=== PATIENT | female | born 1965 | race Caucasian/White ===

== ENCOUNTER 2023-07-22 12:51 | Emergency (ER) | payer BC, SELFPAY ==
[2023-07-22 12:53] VITALS: BP 135/73; PULSE 64; RESP 16; TEMP 36.2; O2SAT 97; BMI 33.1
--- NOTE | 2023-07-22 13:23 | CRLHL7_ITS ---
For Patients: As a result of the Century Cures Act, medical imaging exams and procedure reports are released immediately into your electronic medical record. You may view this report before your referring provider. If you have questions, please contact your health care provider. INDICATION: 57 year-old female. Right lower quadrant abdominal pain for 1 week. Previous dilatation and curettage. Prior section. History of miscarriage. TECHNIQUE: Contrast-enhanced CT of the abdomen and pelvis. 98 cc nonionic Isovue-370 administered. COMPARISON: None. FINDINGS: Clear included lung bases. The liver is negative for masses or biliary ductal dilatation. Minimal benign calcification along the capsular surface of the right hepatic lobe just underneath the hemidiaphragm of no clinical significance. The spleen, pancreas, adrenal glands, and kidneys are within normal limits. Tiny cortical cyst right kidney. No solid mass or stone. No perinephric fluid collection/fat stranding. Small Phrygian cap of the gallbladder. The gallbladder is otherwise negative. Normal caliber abdominal aorta and iliac arteries. Normal inferior vena cava. No bowel obstruction or ileus. No ascites or lymphadenopathy. The appendix is not seen. There are no secondary signs of acute appendicitis. The uterus, urinary bladder, and both adnexa are unremarkable. Degenerative facet arthropathy of the mid to lower lumbar spine. No acute fractures. IMPRESSION: 1. No acute abdominopelvic process identified. The appendix is not seen. It may be surgically absent. 2. No bowel obstruction or ileus. No ascites or lymphadenopathy. Please note that all CT scans at this facility use dose modulation, iterative reconstruction, and/or weight-based dosing when appropriate to reduce radiation dose to as low as reasonably achievable. Dictated by Gume Lorenzana MD @ 07/22/2023 3:04:30 PM (Electronically Signed)
--- NOTE | 2023-07-22 13:26 | ED.GENADULT ---
HPI - General Adult General Time Seen by Provider: 13:26 Date Seen: 07/22/23 Chief complaint: Abdominal Pain Stated complaint: Possible appendicitis Time Seen by Provider: 07/22/23 12:53 Source: patient Mode of arrival: ambulatory Limitations: no limitations History of Present Illness HPI narrative: Patient is a 57 white female that has history of ulcerative colitis as well as fibromyalgia, presents with right lower quad abdominal pain on and off for about a week. She notices certainly positional at times, it is not present at times. She has had some intermittent constipation which was normal for her. She was scheduled for routine colonoscopy and call the GI doctor and they felt that she should be evaluated for rule out appendicitis or ulcerative colitis with flare. She has had no fever chills she has had no flares of ulcerative colitis for quite some time she is allergic to prednisone. No fevers, chills, weight loss. Related Data Home Medications Medication Instructions Recorded Confirmed Fish Oil 07/22/23 balsalazide 750 mg capsule 2,250 mg PO 3XD 07/22/23 07/22/23 brain awake 07/22/23 buspirone 15 mg tablet 15 mg PO BID 07/22/23 07/22/23 fluoxetine 20 mg capsule 60 mg PO QAM 07/22/23 07/22/23 iron 07/22/23 Allergies Allergy/AdvReac Type Severity Reaction Status Date / Time prednisone Allergy Intermediate Verified 07/22/23 14:00 Review of Systems Status of ROS: Reports: 6 or more systems reviewed and unremarkable except as noted in History and below Exam Narrative: Exam Narrative: Objective: In general no apparent distress Vital signs are within normal limits HEENT unremarkable no scleral icterus Pulse regular Abdomen benign soft nontender, except for mild point tenderness in her right lower quadrant. No palpable mass, no rebound. Extremities are no edema neurologic nonfocal Const: Vital Signs, click to edit/add: Vital Signs - 24 hr 07/22/23 12:53 Temperature 97.2 F L Pulse Rate [Pulse Oximeter] 64 Respiratory Rate 16 Blood Pressure [Ri ght Upper Arm] 135/73 Pulse Oximetry 97 Oxygen Delivery Me thod Room Air Course Vital Signs Vital signs: Initial Vital Signs Temperature 97.2 F L 07/22/23 12:53 Temperature Source Temporal Artery Scan 07/22/23 12:53 Pulse Rate 64 07/22/23 12:53 Respiratory Rate 16 07/22/23 12:53 Blood Pressure 135/73 07/22/23 12:53 Blood Pressure Mean 93 07/22/23 12:53 Blood Pressure Position Sitting 07/22/23 12:53 Pulse Oximetry 97 07/22/23 12:53 Oxygen Delivery Method Room Air 07/22/23 12:53 Vital Signs Temperature 97.2 F L 07/22/23 12:53 Pulse Rate 64 07/22/23 12:53 Respiratory Rate 16 07/22/23 12:53 Blood Pressure 135/73 07/22/23 12:53 Pulse Oximetry 97 07/22/23 12:53 Oxygen Delivery Method Room Air 07/22/23 12:53 Temperature 97.2 F L 07/22/23 12:53 Pulse Rate 64 07/22/23 12:53 Respiratory Rate 16 07/22/23 12:53 Blood Pressure 135/73 07/22/23 12:53 Pulse Oximetry 97 07/22/23 12:53 Oxygen Delivery Method Room Air 07/22/23 12:53 Medical Decision Making MDM Narrative Medical decision making narrative: 57 white female with history of ulcerative colitis and fibromyalgia with 1 week history of intermittent right-sided lower abdominal pain. Does not appear to be pelvic, seems like it is more lateral abdomen. It would make sense to do a CT to exclude ulcer colitis I think especially since she has had a history of this, also exclude appendicitis. Patient will get IV fluid, laboratory studies, CT scan with IV contrast of the abdomen pelvis. Of note she has had no hematuria or dysuria frequency Addendum 3:21 p.m. the patient has negative lab studies as well as a negative CT scan of her abdomen. Would recommend observation light diet today and then see how things progress over the next couple of days and follow up with primary care at that time if needed. Discussed the evolutionary nature of abdominal pain the need for re-evaluation at this time everything seems appropriate. Her appendix was not visualized but there was no periappendiceal inflammation or other abnormality, and her examination is not can not really consistent with appendicitis. Certainly could be early in need re-evaluation as mentioned above the Lab Data Labs: Lab Results 07/22/23 Range/Units 13:35 WBC 7.78 (4.50-11.00) K/uL RBC 4.76 (4.00-5.20) m/uL Hgb 14.0 (12.0-16.0) gm/dL Hct 42.9 (33.0-51.0) % MCV 90 (80-100) fL MCH 29 (26-34) pg MCHC 33 (32-36) gm/dL RDW Coeff of [place] 13.8 (11.5-15.5) % Plt Count 374 (140-440) K/uL Neut % (Auto) 63.3 (42.0-72.0) % Lymph % (Auto) 27.5 (20-44) % [place] % (Auto) 6.8 (0.0-11.0) % Eos % (Auto) 1.9 (0.0-7.0) % Baso % (Auto) 0.4 (0.0-3.0) % Neut # (Auto) 4.92 (1.7-7.0) K/uL Lymph # (Auto) 2.14 (0.90-2.90) K/uL [place] # (Auto) 0.50 (0.00-0.90) K/UL Eos # (Auto) 0.15 (0.00-0.50) K/uL Baso # (Auto) 0.03 (0.00-0.30) K/uL Abs Immat Gran (auto) 0.01 (0.00-0.30) K/uL Imm/Tot Granulo (auto) 0.1 % Sodium 140 (135-149) mmol/L Potassium 3.8 (3.6-5.1) mmol/L Chloride 105 (96-114) mmol/L Carbon Dioxide 26 (20-32) mmol/L Anion Gap 9 (7-15) mEq/L BUN 14 (7-30) mg/dL Creatinine 0.7 (0.5-1.5) mg/dL Estimated Creat Clear 81.71 Estimated GFR 102 ml/min Glucose 94 (60-115) mg/dL Calcium 9.2 (8.4-10.6) mg/dL Total Bilirubin 0.7 (0.1-1.5) mg/dL Direct Bilirubin 0.0 (0.0-0.5) mg/dL AST 33 (12-35) U/L ALT 20 (4-35) U/L Alkaline Phosphatase 61 (40-150) U/L C-Reactive Protein 0.8 (0.5-1.0) mg/dL Total Protein 7.6 (6.0-8.3) g/dL Albumin 4.5 (3.3-5.0) g/dL Amylase 44 (18-89) U/L Discharge Plan Discharge Clinical Impression: Right sided abdominal pain Patient Disposition: Home, Self-Care Condition: Stable Instructions: Abdominal Pain (ED) Additional Instructions: Light diet, light activity, observation, recheck with primary care in the next few days as needed. Activity Level: Light activity Discharge Diet: Full Liquid Diet Detail: Advance diet as tolerated Prescriptions: No Action balsalazide 750 mg capsule 2,250 mg PO 3XD fluoxetine 20 mg capsule 60 mg PO QAM buspirone 15 mg tablet 15 mg PO BID iron brain awake Fish Oil Follow Up/Referrals: Janae Arora MD [Staff Physician] - Stand Alone Forms: [employer] Info Instructions
[2023-07-22 13:41] LABS: Basophils Absolute Auto 0.03 K/uL (0.00-0.30); Basophils Percent Auto 0.4 % (0.0-3.0); Eosinophils Absolute Auto 0.15 K/uL (0.00-0.50); Eosinophils Percent Auto 1.9 % (0.0-7.0); Hematocrit 42.9 % (33.0-51.0); Immature Granulocytes Abs Auto 0.01 K/uL (0.00-0.30); Immature Granulocytes Pct Auto 0.1 %; Lymphocytes Absolute Auto 2.14 K/uL (0.90-2.90); Lymphocytes Percent Auto 27.5 % (20-44); Mean Corpuscular HGB Conc 33 gm/dL (32-36); Mean Corpuscular Hemoglobin 29 pg (26-34); Mean Corpuscular Volume 90 fL (80-100); Monocytes Percent Auto 6.8 % (0.0-11.0); Neutrophils Absolute Auto 4.92 K/uL (1.7-7.0); Neutrophils Percent Auto 63.3 % (42.0-72.0); Platelet Count* 374 K/uL (140-440); RDW Coefficient of Variation % 13.8 % (11.5-15.5); Red Blood Count 4.76 m/uL (4.00-5.20); White Blood Count* 7.78 K/uL (4.50-11.00)
[2023-07-22] MEDS: 0.9 % SODIUM CHLORIDE 500 ML 500 ML IV (13:48)
[2023-07-22 13:52] LABS: Slide Review Reflex No
[2023-07-22 14:09] LABS: Albumin* 4.5 g/dL (3.3-5.0); Chloride* 105 mmol/L (96-114)
[2023-07-22 14:10] LABS: Potassium* 3.8 mmol/L (3.6-5.1); Sodium* 140 mmol/L (135-149)
[2023-07-22 14:12] LABS: Amylase* 44 U/L (18-89); Anion Gap 9 mEq/L (7-15); Bilirubin Total* 0.7 mg/dL (0.1-1.5); Carbon Dioxide* 26 mmol/L (20-32); Creatinine* 0.7 mg/dL (0.5-1.5); Est. Creatinine Clearance* 81.71; Estimated Glomerular Filt Rate 102 ml/min
[2023-07-22 14:13] LABS: Alanine Aminotransferase* 20 U/L (4-35); Alkaline Phosphatase* 61 U/L (40-150); Aspartate Amino Transferase* 33 U/L (12-35); Blood Urea Nitrogen* 14 mg/dL (7-30); Calcium* 9.2 mg/dL (8.4-10.6); Glucose* 94 mg/dL (60-115); Total Protein* 7.6 g/dL (6.0-8.3)
[2023-07-22 14:15] LABS: C Reactive Protein* 0.8 mg/dL (0.5-1.0)
== END 2023-07-22 15:23 | disposition home or self-care (01) ==
PROVIDERS: Emergency Provider Family Medicine; PCP Internal Medicine
DX: R10.31 Right lower quadrant pain (principal)
CPT/HCPCS: 36415; 74177; 80048; 80076; 82150; 85025; 86140; 99283; 99285; J7120; Q9967

== ENCOUNTER 2025-02-09 12:15 | Emergency (ER) | payer BC, SELFPAY ==
[2025-02-09] VITALS (24 sets, daily range): BP systolic 136–158; BP diastolic 73–82; PULSE 82–95; RESP 20–50; TEMP 37; O2SAT 89–97; BMI 33.3
--- NOTE | 2025-02-09 12:29 | CRLHL7_ITS ---
For Patients: As a result of the Century Cures Act, medical imaging exams and procedure reports are released immediately into your electronic medical record. You may view this report before your referring provider. If you have questions, please contact your health care provider. INDICATION: Abdominal pain TECHNIQUE: CT abdomen and pelvis with 95 mL Isovue 370 intravenous contrast. COMPARISON: CT 02/05/2025, 01/30/2025 FINDINGS: Lower chest: Unremarkable. Liver: Normal in size and attenuation. No suspicious masses. Gallbladder and bile ducts: Cholecystectomy. Fluid collection in the gallbladder fossa probably not significantly changed from most recent exam slightly decreased in size from 01/30 focus of gas present. No biliary dilatation seen. Pancreas: Unremarkable. No mass or inflammation. Spleen: Normal in size. No masses. Adrenal glands: Normal in size. No nodules. Kidneys: Too small to characterize low-attenuation lesions in both kidneys. GI tract: Large amount of stool throughout the colon again seen. No obstruction seen. Vasculature: Abdominal aorta is normal in caliber. Lymph nodes: No lymphadenopathy. Peritoneum/Abdominal Wall: Unremarkable. No sign of mass or infiltration. No free air or significant free fluid. Pelvis: Unremarkable. No pelvic masses. Bones: Unremarkable for age. IMPRESSION: 1. Post cholecystectomy similar appearance a rounded fluid collection measuring 5.5 x 4.2 centimeters in the gallbladder fossa focus of gas present. Overall this is not significantly changed in size from the most current exam, decreased in size from 01/30. Bile leak not excluded infected collection not excluded however decreased foci of gas compared to 01/30. 2. Large amount of stool the colon could reflect within constipation. No obstruction. Please note that all CT scans at this facility use dose modulation, iterative reconstruction, and/or weight-based dosing when appropriate to reduce radiation dose to as low as reasonably achievable. Dictated by Carrie Vu MD @ 02/09/2025 2:57:05 PM (Electronically Signed)
--- NOTE | 2025-02-09 12:29 | CRLHL7_ITS ---
For Patients: As a result of the Century Cures Act, medical imaging exams and procedure reports are released immediately into your electronic medical record. You may view this report before your referring provider. If you have questions, please contact your health care provider. INDICATION: Chest pain abdominal pain TECHNIQUE: CT chest with 95 mL Isovue 370 contrast. COMPARISON: CT 02/05/2025 FINDINGS: Lungs and pleura: Small to moderate right effusion minimally increased. Right basilar compressive atelectasis. Left-sided mild atelectasis. Heart and vasculature: Heart size is normal. Thoracic aorta and pulmonary artery are normal in caliber. No pulmonary emboli. Lymph nodes/mediastinum: Mildly enlarged right hilar node. Chest wall: No masses. Bones: Unremarkable for age. IMPRESSION: 1. No pulmonary emboli visualized. Moderate right effusion. Minimally increased from the prior study. Right middle and lower lobe atelectasis left basilar atelectasis. Please note that all CT scans at this facility use dose modulation, iterative reconstruction, and/or weight-based dosing when appropriate to reduce radiation dose to as low as reasonably achievable. Dictated by Carrie Vu MD @ 02/09/2025 2:48:29 PM (Electronically Signed)
--- NOTE | 2025-02-09 12:32 | ED.GENADULT ---
HPI - General Adult General Chief complaint: Chest Pain Stated complaint: Left side pain- chest pain-two weeks Time Seen by Provider: 02/09/25 12:17 History of Present Illness HPI narrative: 59-year-old female who had her gallbladder removed [address] The actual surgical date for cholecystectomy was 01/14/2025:. Looks like it was done with the robot. Since then she has had what sounds like a pleural effusion on the right. She had a follow-up CT scan. She was scheduled to have ?someone drain the fluid? at the [facility] within the next few days. The patient complains of abdominal pain and some chest pain she has had no fevers chills rigors but she describes pain from her right lower chest down to her hip laterally that has been quite painful. She describes a history of cellulitis of the postoperative sites that she was treated for as well. She has apparently been eating and drinking no bowel or bladder symptoms, she has been on buspirone and fluoxetine. She has some phototherapy patches on her abdomen. Her main complaint today is chest pressure as well as the pain in her right lower chest wall in side. That apparently is the side of her fluid in her lung as well. Reviewing lab results from CT scans of 522 done at [address] show that the patient has interval increase in organization the postoperative fluid collection within the gallbladder fossa this would be concerning for a bile leak or superinfection with possible abscess formation. Related Data Home Medications ?Medication ?Instructions ?Recorded ?Confirmed Fish Oil 07/22/23 balsalazide 750 mg capsule 2,250 mg PO 3XD 07/22/23 07/22/23 brain awake 07/22/23 buspirone 15 mg tablet 15 mg PO BID 07/22/23 07/22/23 fluoxetine 20 mg capsule 60 mg PO QAM 07/22/23 07/22/23 iron 07/22/23 Allergies Allergy/AdvReac Type Severity Reaction Status Date / Time prednisone Allergy Intermediate Verified 07/22/23 14:00 Review of Systems Status of ROS: Reports: 6 or more systems reviewed and unremarkable except as noted in History and below [facility] Social History Smoking Status: Never smoker Do you use any of these nicotine containing products: None How often do you have a drink containing alcohol: never AUDIT-C Alcohol total score: 0 Non-prescribed substance use: denies use service: No Exam Narrative: Exam Narrative: Objective: In general the patient is in no marked distress her vital signs look largely unremarkable O2 sat is 93% on room air Alert or x3 No facial asymmetry mouth somewhat dry, neck is supple she was actively Chest is clear no rales or wheezing diminished air exchange in both lung bases Heart rhythm regular without murmur Abdomen is tender postoperative laparoscopic sites are noted they appear to be non cellulitic and not draining Extremities are no edema neurologic nonfocal upper extremities, good peripheral perfusion noted. Const: Vital Signs, click to edit/add: Vital Signs - 24 hr 02/09/25 12:22 02/09/25 12:29 02/09/25 12:30 Temperature 98.6 F Pulse Rate Pulse Rate [Left R adial] 92 Respiratory Rate Blood Pressure Blood Pressure [Ri ght Upper Arm] 158/82 H Pulse Oximetry 93 89 89 Oxygen Delivery Me thod Room Air Room Air Oxygen Flow Rate 02/09/25 12:35 02/09/25 12:59 02/09/25 13:00 Temperature Pulse Rate 93 88 Pulse Rate [Left R adial] Respiratory Rate Blood Pressure Blood Pressure [Ri ght Upper Arm] Pulse Oximetry 95 95 95 Oxygen Delivery Me thod Nasal Cannula Nasal Cannula Oxygen Flow Rate 2 2 02/09/25 13:25 02/09/25 13:30 02/09/25 13:45 Temperature Pulse Rate 86 85 85 Pulse Rate [Left R adial] Respiratory Rate 23 23 Blood Pressure Blood Pressure [Ri ght Upper Arm] Pulse Oximetry 94 97 96 Oxygen Delivery Me thod Oxygen Flow Rate 02/09/25 13:51 02/09/25 14:00 02/09/25 14:01 Temperature Pulse Rate 82 85 83 Pulse Rate [Left R adial] Respiratory Rate 24 24 21 Blood Pressure 136/74 137/73 Blood Pressure [Ri ght Upper Arm] Pulse Oximetry 96 95 96 Oxygen Delivery Me thod Nasal Cannula Oxygen Flow Rate 2 02/09/25 14:15 02/09/25 16:30 02/09/25 16:33 Temperature Pulse Rate 84 84 Pulse Rate [Left R adial] 85 Respiratory Rate 21 20 24 Blood Pressure 143/79 H Blood Pressure [Ri ght Upper Arm] 143/79 H Pulse Oximetry 95 95 95 Oxygen Delivery Me thod Nasal Cannula Oxygen Flow Rate 2 02/09/25 16:34 02/09/25 16:45 02/09/25 17:00 Temperature Pulse Rate 85 86 84 Pulse Rate [Left R adial] Respiratory Rate 25 H 21 22 Blood Pressure Blood Pressure [Ri ght Upper Arm] Pulse Oximetry 96 96 96 Oxygen Delivery Me thod Oxygen Flow Rate 02/09/25 17:15 02/09/25 17:30 02/09/25 17:32 Temperature Pulse Rate 84 83 83 Pulse Rate [Left R adial] Respiratory Rate 21 22 21 Blood Pressure 141/78 H Blood Pressure [Ri ght Upper Arm] Pulse Oximetry 96 97 97 Oxygen Delivery Me thod Oxygen Flow Rate 02/09/25 17:45 02/09/25 18:00 02/09/25 18:01 Temperature Pulse Rate 95 86 82 Pulse Rate [Left R adial] Respiratory Rate 50 H 25 H 24 Blood Pressure 144/80 H Blood Pressure [Ri ght Upper Arm] Pulse Oximetry 97 93 96 Oxygen Delivery Me thod Oxygen Flow Rate Course Vital Signs Vital signs: Initial Vital Signs Temperature 98.6 F 02/09/25 12:22 Temperature Source Temporal Artery Scan 02/09/25 12:22 Pulse Rate 92 02/09/25 12:22 Pulse Rhythm Regular 02/09/25 12:22 Blood Pressure 158/82 H 02/09/25 12:22 Blood Pressure Mean 107 H 02/09/25 12:22 Pulse Oximetry 93 02/09/25 12:22 Oxygen Delivery Method Room Air 02/09/25 12:22 Vital Signs Temperature 98.6 F 02/09/25 12:22 Pulse Rate 92 02/09/25 12:22 Blood Pressure 158/82 H 02/09/25 12:22 Pulse Oximetry 93 02/09/25 12:22 Oxygen Delivery Method Room Air 02/09/25 12:22 Temperature 98.6 F 02/09/25 12:22 Pulse Rate 82 02/09/25 18:01 Respiratory Rate 24 02/09/25 18:01 Blood Pressure 144/80 H 02/09/25 18:01 Pulse Oximetry 96 02/09/25 18:01 Oxygen Delivery Method Nasal Cannula 02/09/25 16:30 Oxygen Flow Rate 2 02/09/25 16:30 Medications Administered Medications: Discontinued Medications Generic Name Dose Route Start Last Admin Trade Name Freq PRN Reason Stop Dose Admin Sodium Chloride 500 mls @ 500 mls/hr 02/09/25 12:28 02/09/25 16:55 0.9 % Sodium Chloride 500 Ml IV 02/09/25 13:27 Infused .Q1H ONE Infusion Ertapenem 1 gm/ Sodium 100 mls @ 200 mls/hr 02/09/25 13:42 02/09/25 13:51 Chloride IVPB 02/09/25 13:43 200 mls/hr ONCE ONE Administration Lorazepam 1 mg 02/09/25 12:28 02/09/25 12:48 Lorazepam 2 Mg/Ml Inj IVP 02/09/25 12:29 1 mg ONCE ONE Administration Lorazepam 1 mg 02/09/25 18:30 02/09/25 18:31 Lorazepam 2 Mg/Ml Inj IVP 02/09/25 18:31 1 mg ONCE ONE Administration Morphine Sulfate 2 mg 02/09/25 12:45 02/09/25 12:48 Morphine 2 Mg/Ml Inj IVP 02/09/25 12:46 2 mg ONCE ONE Administration Medical Decision Making MDM Narrative Medical decision making narrative: 59-year-old female status post cholecystectomy with abdominal pain and chest pressure. She apparently has a pleural effusion postoperatively as well. Will check a CT scan of her chest abdomen pelvis with IV contrast. Exclude PE exclude pneumonia check this pleural effusion. Will also check intra-abdominal make sure there is no fluid leak or other abnormality. She does have chest pressure as well would do a cardiac assessment. Given the patient's multitude of issues that may be reasonable to hospitalize her for observation serial troponins and possibly consult with 1 of our surgeons if she does need in fact thoracentesis. Addendum 1:00 p.m.: The patient had records obtained from [facility] as are not on the same medical record system as we are, she had CT scan evidence of fluid or gallbladder floss a that was concerning for a bile leak, she also had a pleural effusion that was small but was thought that interventional radiology would drain this. I think at this point we basically start over and Chris ET her see if she has fluid in the gallbladder fossa see if it possibly is a bile leak if that would be the case then she might need Interventional Radiology for drain placement. She would need to be transferred to tertiary care for that. Will review the CT and labs as they return. Addendum 3:30 p.m. discussed with General surgery at [facility] they agree with IR consultation and possible drainage of the gallbladder fossa. Agree with antibiotics and will need to assess the pleural effusion as well. Will admit to the hospitalist and then general surgery consult. As well as IR consult. Transfer sheets completed. Patient is in stable condition for transfer. Lab Data Labs: Lab Results 02/09/25 Range/Units 13:00 WBC 12.69 H (4.50-11.00) K/uL RBC 4.38 (4.00-5.20) m/uL Hgb 12.7 (12.0-16.0) gm/dL Hct 39.8 (33.0-51.0) % MCV 91 (80-100) fL MCH 29 (26-34) pg MCHC 32 (32-36) gm/dL RDW Coeff of [place] 14.3 (11.5-15.5) % Plt Count 861 H (140-440) K/uL Neut % (Auto) 74.5 H (42.0-72.0) % Lymph % (Auto) 15.4 L (20-44) % [place] % (Auto) 5.6 (0.0-11.0) % Eos % (Auto) 3.9 (0.0-7.0) % Baso % (Auto) 0.3 (0.0-3.0) % Neut # (Auto) 9.50 H (1.7-7.0) K/uL Lymph # (Auto) 2.00 (0.90-2.90) K/uL [place] # (Auto) 0.70 (0.00-0.90) K/UL Eos # (Auto) 0.50 (0.00-0.50) K/uL Baso # (Auto) 0.00 (0.00-0.30) K/uL Abs Immat Gran (auto) 0.00 (0.00-0.30) K/uL Imm/Tot Granulo (auto) 0.3 % INR 1.06 (0.91-1.10) APTT 31 (23-33) Seconds Sodium 140 (135-149) mmol/L Potassium 3.5 L (3.6-5.1) mmol/L Chloride 100 (96-114) mmol/L Carbon Dioxide 30 (20-32) mmol/L Anion Gap 10 (7-15) mEq/L BUN 19 (7-30) mg/dL Creatinine 0.7 (0.5-1.5) mg/dL Estimated Creat Clear 76.57 Estimated GFR 101 ml/min Glucose 110 (60-115) mg/dL Calcium 9.6 (8.4-10.6) mg/dL Total Bilirubin 0.5 (0.1-1.5) mg/dL Direct Bilirubin 0.4 (0.0-0.5) mg/dL AST 24 (12-35) U/L ALT 17 (4-35) U/L Alkaline Phosphatase 80 (40-150) U/L Troponin I < 0.01 (0.01-0.04) ng/mL C-Reactive Protein 7.2 H (0.5-1.0) mg/dL Total Protein 8.2 (6.0-8.3) g/dL Albumin 4.3 (3.3-5.0) g/dL Amylase 45 (18-89) U/L Discharge Plan Discharge Clinical Impression: Chest pain, Abdominal pain Prescriptions: No Action balsalazide 750 mg capsule 2,250 mg PO 3XD fluoxetine 20 mg capsule 60 mg PO QAM buspirone 15 mg tablet 15 mg PO BID iron brain awake Fish Oil Follow Up/Referrals: Idania Bergeron MD [Primary Care Provider, Internal Medicine]
[2025-02-09] MEDS: LORazepam 2 MG/ML inj 1 MG IVP ×2 (12:48→18:31)
[2025-02-09] MEDS: MORPHINE 2 MG/ML inj IVP (12:48)
--- OUTSIDE RECORDS SUMMARY | 2025-02-09 12:48 | XMS_ITS | Clinical Summary ---
Author Organization [facility] Address [address] [place] [address]. [place] [address] Care Team Providers Care Radial Drill Operator Name Role Phone Idania Balderas Primary Care Provider Allergies Active Allergy Reactions Criticality Noted Date Comments Prednisone 04/22/2020 Hallucinations, unable to sleep, Oral thrush Medications balsalazide (COLAZAL) 750 MG capsule Take 3,750 mg by mouth every morning Active balsalazide (COLAZAL) 750 MG capsule Take 3,000 mg by mouth every evening Active FLUoxetine 20 MG tablet Take 60 mg by mouth daily Active busPIRone (BUSPAR) 15 MG tablet Take 15 mg by mouth 2 times daily Active cholecalciferol (VITAMIN D3) 25 mcg (1000 units) capsule Take 2 capsules by mouth daily Active multivitamin w/minerals (MULTI-VITAMIN) tablet Take 1 tablet by mouth 3 times daily Active Social History Tobacco Use Types Packs/Day Years Used Date Smoking Tobacco: Never Smokeless Tobacco: Never Tobacco Cessation:Counseling Given: Yes Alcohol Use Standard Drinks/Week Comments Not Currently 0 (1 standard drink = 0.6 oz pur e alcohol) Comments No Sex and Gender Information Value Date Recorded Sex Assigned at Not on file 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 Gender Identity Not on file Sexual Orientation Not on file Last Filed Vital Signs Vital Sign Reading Time Taken Comments Blood Pressure 122/66 04/26/2020 2:30 PM CDT Pulse - - Temperature 36.6 C (97.9 F) 04/26/2020 2:30 PM CDT Respiratory Rate 15 04/26/2020 2:45 PM CDT Oxygen Saturation 96% 04/26/2020 2:4 5 PM CDT Inhaled Oxygen Concentration - - Weight 83 kg (183 lb) 05/03/2020 11:01 AM CDT Patient reported Height 165.1 cm (5' 5) 05/03/2020 11:0 1 AM CDT Patient reported Body Mass Index 30.45 05/03/2020 11:01 AM CDT Plan of Treatment Not on file Insurance [facility] Care Teams Radial Drill Operator Relationship Specialty Start Date End Date Idania Balderas [address] [place] [id number] PCP - General Internal Medicine 10/15/18
--- OUTSIDE RECORDS SUMMARY | 2025-02-09 12:48 | XMS_ITS | Encounter Summary ---
Author Organization [facility] Address [address] [place] [address] Care Team Providers Care Manager Cleaning Name Role Phone Clinician, Not Found Primary Care Provider Un available Encounter Details Date Type Department Care Team (Latest Contact Info) Description 07/09/2014 Correspondence TMD at [address] [phone] Angela Card, LADI, [place] [address] [place], [place] [phone] REQUEST FOR COST ESTIMATE Social History Tobacco Use Types Packs/Day Years Used Date Smoking Tobacco: Never Assessed Comments Unknown Sex and Gender Information Value Date Recorded Sex Assigned at Not on file Legal Sex Female 4:20 PM CDT Gender Identity Not on file Sexual Orientation Not on file documented as of this encounter Plan of Treatment Not on file documented as of this encounter Visit Diagnoses Not on filedocumented in this encounter Additional Health Concerns Infection Onset Date Last Indicated Resolved Time R/O COVID19 05/11/2020 05/11/2020 05/11/2020 10:2 1 PM CDT COVID19 05/11/2020 05/11/2020 06/01/2020 3:17 AM CDT documented as of this encounter Care Teams Manager Cleaning Relationship Specialty Start Date End Date Clinician, Not Found, [place] [address] PCP - General 06/27/23 documented as of this encounter
--- OUTSIDE RECORDS SUMMARY | 2025-02-09 12:48 | XMS_ITS | Encounter Summary ---
Author Organization [facility] Address [address] [place] [address] Care Team Providers Care Freelance Patternmaker Name Role Phone Clinician, Not Found Primary Care Provider Un available Encounter Details Date Type Department Care Team (Latest Contact Info) Description 06/04/2014 Correspondence None No Primary/Referring, Phy REFERRAL TO TMD Social History Tobacco Use Types Packs/Day Years [...] documented as of this encounter Care Teams Freelance Patternmaker Relationship Specialty Start Date End Date Clinician, Not Found, [place] [address] PCP - General 06/27/23 documented as of this encounter
--- OUTSIDE RECORDS SUMMARY | 2025-02-09 12:48 | XMS_ITS | Clinical Summary ---
[facility] Address [address] [place] [address] Care Team Providers Care Moving Van Driver Name Role Phone Clinician, Not Found MD Primary Care Provider Un available Source Comments You are receiving this document as you are listed as the primary care provider,follow-up provider, or the patient has been referred to you for consultation.This is in compliance with the Medicare and[facility] E[facility] Incentive Program,which states Providers who transition their patient to another setting of careor provider of care or refers their patient to another provider of care shouldprovide summary care record for each transition of care or referral. [place] Allergies Active Allergy Reactions Criticality Noted Date Comments Prednisone Dizziness 06/25/2014 Medications Multiple Vitamins-Mineral s (MULTIVITAMIN OR) three times a day. 3.3mcg vitamin tid Active Cholecalciferol (VITAMIN D) 2000 units tablet TK 1 T PO QD 11 9 Active balsalazide (COLAZAL) 750 MG capsuleIndicatio ns:Ulcerative colitis with complication, unspecified location (HRC) Take 3 Capsules by mouth two times a day. Pt takes 5 capsules every am and 4 capsules every pm 27 Each 1 Active mesalamine (ROWASA) 4 g enema 1 Active Melatonin 10 MG TABS Patient is taking 1/3 of the 10 mg tab Active busPIRone (BUSPAR) 15 MG tablet TAKE 1 TABLET BY MOUTH TWICE DAILY 180 Tablet 2 Active FLUoxetine (PROZAC) 20 MG capsuleIndicatio ns:Anxiety (HRC),Recurrent major depressive disorder, in full remission (HRC) Take 3 Capsules (60 mg) by mouth daily. 270 Capsule 2 Active Active Problems Problem Noted Date Diagnosed Date Prediabetes 10/04/2021 High cholesterol 10/04/2021 Insomnia 09/20/2021 Gallstones 03/08/2020 Anxiety 03/12/2019 Fatigue 03/12/2019 Fibromyalgia 11/04/2018 Immunosuppression 07/24/2017 Hx of colonic polyps 08/02/2015 Major depression, recurrent 01/01/2009 Ulcerative colitis 02/21/2003 Overview (05/09/2017): Colitis Ulcerative Chronic Resolved Problems Problem Noted Date Diagnosed Date Resolved Date Recurrent major depressive d isorder, in full remission 03/12/2019 05/13/2020 Immunizations Immunization Administration Dates Next Due Flu Vac (3+ yrs) 06/22/2011,07/18/2006 HepA-HepB ([place], 18+ yrs) 05/05/2019,11/26/19,10/28/2018 Influenza (Flucelvax), Preserv Free QIV 10/01/19 Influenza IIV4 (Quadrivalent) 0.5mL (41455) 09/18 PPSV23 (Pneumovax) 01/22/2019 Td 11/06/2005 Tdap 03/31/2020 Family History Medical History Relation Name Comments Hypertension Father Myocardial Infarction Father Age 53 . Heart Disease Mother Kidney/Bladder Disease Mother Cardiovascular Disease Brother Pacem nani High Cholesterol Brother Hypertension Brother Mental Disorder Brother Bipolar II Other Daughter 5 daughers One daughter tong rn with a nub hand she says Myocardial Infarction Maternal Grandfather Age 48 Heart Disease Maternal Grandmother Cancer Paternal Grandfather Lukemia Stroke Paternal Grandmother Depression Sister 1 No Known Problems Sister 2 No Known Problems Son 3 boys Relation Name Status Comments Father Mother Brother Alive Daughter 5 daughers Alive Maternal Grandfather Maternal Grandmother Paternal Grandfather Paternal Grandmother Sister 1 Alive Sister 2 Alive Son 3 boys Alive Social History Tobacco Use Types Packs/Day Years Used Date Smoking Tobacco: Never Smokeless Tobacco: Never Tobacco Cessation:Counseling Given: No Alcohol Use Standard Drinks/Week Comments Not Currently 0 (1 standard drink = 0.6 oz pur e alcohol) PHQ-2 Answer Date Recorded PHQ-2 Score 0 10/04/2021 Comments No Sex and Gender Information Value Date Recorded Sex Assigned at Not on file Legal Sex Female 4:20 PM CDT Gender Identity Not on file Sexual Orientation Not on file Occupation Industry Job Start Date Job End Date Stay at home mom Not on file Not on file Not on file Last Filed Vital Signs Vital Sign Reading Time Taken Comments Blood Pressure 126/57 03/03/2022 6:13 PM CDT Pulse 71 03/03/2022 6:13 PM CDT Temperature 36.9 C (98.4 F) 03/03/2022 6:13 PM CDT Respiratory Rate 18 03/03/2022 6:13 PM CDT Oxygen Saturation 98% 03/03/2022 6:13 PM CDT Inhaled Oxygen Concentration - - Weight 93 kg (205 lb) 10/04/2021 10:56 AM HEATER MECHANIC Height 162.6 cm (5' 4) 10/04/2021 10:56 AM HEATER MECHANIC Body Mass Index 35.19 10/04/2021 10:56 AM HEATER MECHANIC Plan of Treatment Health Maintenance Due Date Last Done Comments Hep C Screening (Preventive Services) 1965 Zoster/Shingles Vaccine (1 of 2) 2017 Pneumococcal Vaccine 50+ Yrs (2 of 2 - PCV) 01/23/2020 01/22/2019 Adult Preventive Visit 03/31/2021 03/31/2020, 2018 Cervical Cancer Screening 03/12/20222018, 03/12/2019, 11/22/2000 Prediabetes: HGBA1C 09/30/2022 09/30/2021, Mammogram 12/03/2022 12/03/2021, 10/0 04/2020, 04/29/2019, Additional history exists Colonoscopy 02/10/2023 02/10/2022, 10/19, 11/06/2019, Additional history exists COVID-19 Vaccine ( season) 2024 Influenza Vaccine (Season Ended) 2025 10/09/2019, 10/01/2018, 06/22/2011, Additional history exists Cholesterol 09/30/2026 09/30/2021, 03/17, 11/07/2018, Additional history exists DTaP/Tdap/Td Vaccine (2 - Tdap) 03/31/2030 03/31/2020, 11/06/2005 HIV Screening (Preventive Services) Completed 03/07/2001 HepA Vaccine Aged Out 05/05/2019, 11/15, 10/28/2018 No longer eligible based on patient's age to complete this topic HepB Vaccine Completed 05/05/2019, 11/15, 10/28/2018 Hib Vaccine Aged Out No longer eligi ble based on patient's age to complete this topic IPV (Polio) Vaccine Aged Out No longe r eligible based on patient's age to complete this topic MCV4 Vaccine Aged Out No longer eligi ble based on patient's age to complete this topic Meningococcal B Vaccine Aged Out No l onger eligible based on patient's age to complete this topic Procedures Procedure Name Priority Date/Time Associated Diagnosis Comments COLONOSCOPY S 02/10/2022 MM MAMMOGRAM SCREENING BILAT W CAD Routine 12/03/2021 11:02 AM CDT Encounter for screening mammogram for malignant neoplasm of breast HGB A1C Routine 09/30/2021 10:02 AM HEATER MECHANIC Screening for diabetes mellitus LIPID PANEL & DIRECT LDL (IF NEEDED) Routine 09/30/2021 10:02 AM HEATER MECHANIC Encounter for screening for lipoid disorders CYTOLOGY (PAP) Routine 03/12/2019 12:55 PM CDT Pap smear for cervical cancer screening HIV ANTIBODY Routine 03/07/2001 10:43 AM CDT from Last 3 Months or Most Recently Relevant to Health Maintenance Results * COLONOSCOPY S (02/10/2022) Yennifer Rodriguez PA-C DUMMY/OTHER/AR Final Result * MM Mammogram Screening Bilat W CAD (12/03/2021 11:02 AM CDT) Anatomical Region Laterality Modality Breast Bilateral Mammography Impressions 12/05/2021 9:00 AM CDT : ACR BI-RADS Category 1: Negative RECOMMENDATION: Follow Up Imaging in 12 months - Bilateral The results and recommendations of this examination will be communicated to the patient. Narrative 12/05/2021 9:00 AM CDT MM MAMMOGRAM SCREENING BILAT W CAD performed on 12/03/21 Compared to: 06/24/2020 MM Mammogram Screening Bilat W CAD, 04/29/2019 MM Mammogram Screening Bilat W CAD, and 01/03/2017 Foreign Image(S) Mammogram FINDINGS: Bilateral screening mammogram was performed with the assistance of Computer-Aided Detection . The breasts have scattered areas of fibroglandular density. There is no radiographic evidence of malignancy. us Yennifer Rodriguez PA-C RAD GALI Final Result * (ABNORMAL) Lipid Panel and Direct LDL(If Needed) (09/30/2021 10:02 AM HEATER MECHANIC) Cholesterol 250(H) 0 - 199 mg/dL 09/30/2021 2:48 PM [facility] Triglyceride 76 <=149 mg/dL 09/30/2021 2:48 PM [facility] HDL Cholesterol 74 >=40 mg/dL 2 2:48 PM [facility] LDL, Calculated 161(H) <130 mg/dL 2 2:48 PM [facility] Non HDL Chol, Calculated 176(H) <=159 mg/dL 09/30/2021 2:48 PM [facility] Cholesterol/HDL Ratio 3.4 09/30/2021 2:48 PM [facility] Hours Fasting 14 09/30/2021 2:48 PM [facility] Blood Venipuncture / Unknown 09/30/2021 10:02 AM HEATER MECHANIC 09/30/2021 10:02 AM HEATER MECHANIC us Yennifer Rodriguez PA-C LAB_1 Final Result [facility] [address] [place] [address], [facility] [[email or web address]] [phone] [facility] [address] [place] [address] [phone] * (ABNORMAL) Hgb A1C (09/30/2021 10:02 AM HEATER MECHANIC) Hemoglobin A1C 6.0(H) <=5.6 % 09/30/2021 5:29 PM HEATER MECHANIC [facility] Blood Venipuncture / Unknown 09/30/2021 10:02 AM HEATER MECHANIC 09/30/2021 10:02 AM HEATER MECHANIC Narrative [facility] - 09/30/2021 5:29 PM HEATER MECHANIC For patients not previously diagnosed with diabetes: 5.7-6.4%: Increased risk for diabetes 6.5% and greater: Diagnostic for diabetes For patients diagnosed with diabetes: <8.0%: Goal of therapy for ages 18-75 Clinicians may recommend a higher or lower goal for specific individuals. Yennifer Rodriguez PA-C LAB_1 Final Result Performing Organization Address City/State/[facility] Co de Phone Number [facility] [address] [phone] * PAP Test (03/12/2019 12:55 PM CDT) Case Report Pap Case: [id number] Authorizing Provider: Yennifer Rodriguez PA-C Collected: 03/12/2019 12:55 PM Ordering Location: [facility] Received: 03/12/2019 01:09 PM First Screen: Leigha Priest Specimen: Pap Test, Routine, Cervix/Endocervix 03/18/2019 3:09 PM CDT [facility] Pap Specimen Adequacy Satisfactory for evaluation, endocervical/mccray sformation zone component absent. 03/18/2019 3:09 PM CDT [facility] Pap Interpretation Negative for intraepithelial lesion or malignancy (NILM). 03/18/2019 3:09 PM CDT [facility] at 1509 CDT Gross Description The specimen is received in SurePath fixative and properly labeled. 1 Pap-stained SurePath slide is prepared. 03/18/2019 3:09 PM CDT [facility] Pap Disclaimer The Pap test is a screening test designed to aid in the detection of cervical cancer and its precursor lesions. It is not a diagnostic procedure and should not be used as the sole means of detecting cervical cancer. Both false-positive and false-negative reports may occur. 03/18/2019 3:09 PM CDT [facility] Embedded Images 9 3:09 PM CDT [facility] Other Specimen Type ENTIRE ENDOCERVIX / Unknown 03/12/2019 12:55 PM CDT 03/12/2019 1:09 PM CDT Comment:LMP: No LMP recorded . Patient is postmenopausal. Yennifer Rodriguez PA-C LAB PATHOLOGY Final Result [facility] [address] [place], [place] [address] * HIV Antibody (03/07/2001 10:43 AM CDT) HIV 1/HIV 2 Non Reac Non Reac HP CONVERSION 03/07/2001 10:4 3 AM CDT Candelario Buchanan MD LAB_1 Final Result HP CONVERSION from Last 3 Months or Most Recently Relevant to Health Maintenance Insurance [facility] Care Teams Moving Van Driver Relationship Specialty Start Date End Date Clinician, Not Found, [place] [address] PCP - General 06/27/23
--- OUTSIDE RECORDS SUMMARY | 2025-02-09 12:48 | XMS_ITS | Clinical Summary ---
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 Five capsules in the morning and four capsules in the evening. 0 07/05/20 22 Active cholecalciferol, Vitamin D3, 2,000 unit tablet Take 1 Tablet by mouth once daily. 01/23/20 19 Active kuglywvi-jtq-ykmo -vitamin K 18 mg iron-25 mcg tab Take 1 Tablet by mouth once daily. Active venlafaxine (EFFEXOR XR) 75 mg cp24 Extended-Release capsuleIndication s:Moderate episode of recurrent major depressive disorder (HC) TAKE 1 CAPSULE(75 MG) BY MOUTH DAILY WITH A MEAL 90 Capsule 1 10/05/19 25 Active Additional Information Patient taking differently: 75 mg Oral DAILY, TAKE 1 CAPSULE(75 MG) BY MOUTH DAILY WITH A MEAL, Informant: Patient's Recall, Reported on 02/05/2025 estradioL (ESTRACE) 0.01% (0.1 mg/g) vaginal creamIndications: Atrophic vaginitis Apply 2 gram vaginally daily for 2 weeks then 1 gram two times a week. 42.5 g 5 10/30/19 25 Active Additional Information Patient taking differently: Vaginal, weekly as needed, Informant: Patient's Recall, Reported on 01/26/2025 ondansetron 4 mg disintegrating tabletIndications :Nausea Place 1 Tablet (4 mg) on the tongue every 8 hours if needed for Nausea/Vomiting. 10 Tablet 12/18/19 25 Active calcium carbonate 600 mg calcium (1,500 mg) tablet Take 1 Tablet (600 mg) by mouth once daily with a meal. 01/08/20 25 Active Lactobacillus acidophilus 10 billion cell cap Take 1 Capsule by mouth once daily. 01/08/20 Active Magnesium Glycinate 100 mg tab Take 2 Tablets by mouth two times daily. 01/08/20 25 Active sennosides-docusa te (8.6-50 mg) tabletIndications :Cholecystitis Take 1 Tablet by mouth two times daily. 20 Tablet 01/15/20 Active acetaminophen 500 mg tablet Take 1,000 mg by mouth every 6 hours. Max acetaminophen dose: 4000mg in 24 hrs. Active oxygen-air delivery systemsIndication s:Hypoxia Oxygen for home use with bubbler/humidity as needed for patient comfort. Liters per minute: 2 per nasal cannula. Frequency of use: Nocturnal. Length of need: 999 Months. 1 Each 01/31/20 25 Active gabapentin 300 mg capsuleIndication s:Fibromyalgia Take 1 Capsule (300 mg) by mouth three times daily. 30 Capsule 02/02/20 25 Active hydrOXYzine pamoate 25 mg capsuleIndication s:Anxiety Take 1 Capsule (25 mg) by mouth every 6 hours if needed for Anxiety or Itching. 30 Capsule 02/02/20 25 Active metroNIDAZOLE 500 mg tabletIndications :skin and skin structure infection Take 1 Tablet (500 mg) by mouth two times daily. 15 Tablet 02/02/20 25 Active cefuroxime axetil 500 mg tabletIndications :Abdominal wall cellulitis Take 1 Tablet (500 mg) by mouth two times daily for 8 days. 15 Tablet 02/02/20 25 025 Active cyclobenzaprine 10 mg tabletIndications :Pain Take 1 Tablet (10 mg) by mouth 3 times daily if needed for Muscle Spasm. 30 Tablet 02/02/20 25 Active traMADoL 50 mg tabletIndications :Pain Take 1 Tablet (50 mg) by mouth 4 times daily if needed for Pain. 20 Tablet 02/02/20 25 Active oxyCODONE-acetami nophen (Percocet) 5-325 mg per tabletIndications :Fever, unspecified fever cause,Hypoxia Take 1 Tablet by mouth every 4 hours if needed for Pain. Max acetaminophen dose: 4000mg in 24 hrs. 15 Tablet 02/06/20 25 Active cefuroxime axetil 250 mg tabletIndications :Fever, unspecified fever cause,Hypoxia,Abd ominal wall cellulitis Take 1 Tablet (250 mg) by mouth two times daily for 10 days. 20 Tablet 02/06/20 25 025 Active metroNIDAZOLE 500 mg tabletIndications :Fever, unspecified fever cause,Hypoxia,Abd ominal wall cellulitis,Pleura l effusion Take 1 Tablet (500 mg) by mouth two times daily for 10 days. 20 Tablet 02/06/20 25 025 Active HYDROcodone-aceta minophen (5-325 mg/tablet)Indicat ions:Biliary colic,Abdominal pain, unspecified abdominal location Take 1 Tablet by mouth every 4 hours if needed for Pain. Max acetaminophen dose: 4000 mg in 24 hrs. 8 Tablet 12/18/19 25 025 Discontin ued(*Joanna ent states no longer taking) oxyCODONE-acetami nophen 5-325 mg per tabletIndications :Cholecystitis Take 1 Tablet by mouth every 6 hours if needed for Pain. Max acetaminophen dose: 4000mg in 24 hrs. 20 Tablet 01/15/20 25 025 Discontin ued(*Joanna ent states no longer taking) ibuprofen 600 mg tabletIndications :Cholecystitis Take 1 Tablet (600 mg) by mouth every 6 hours if needed for Pain. Maximum of 3200 mg in 24 hours. 30 Tablet 01/15/20 25 025 Discontin ued(*Joanna ent states no longer taking) ciprofloxacin 500 mg tabletIndications :ABDOMEN/PELVIS INFECTION Take 1 Tablet (500 mg) by mouth two times daily before meals. 14 Tablet 01/16/20 25 025 Discontin ued(*Med complete/ Regimen complete/ Level of care change) metroNIDAZOLE 500 mg tabletIndications :Cholecystitis Take 1 Tablet (500 mg) by mouth two times daily. 14 Tablet 01/16/20 25 025 Discontin ued(*Med complete/ Regimen complete/ Level of care change) ondansetron 4 mg disintegrating tabletIndications :Nausea Place 1 Tablet (4 mg) on the tongue every 8 hours if needed for Nausea/Vomiting. 20 Tablet 02/02/20 25 025 Discontin ued(*IP Discontin ued) Active Problems Problem Noted Date Diagnosed Date Chronic respiratory failure with hypoxia 025 Cellulitis of right abdominal wall 01/26/2025 S/P laparoscopic cholecystectomy 01/26/2025 Sepsis 01/26/2025 Cholecystitis 01/14/2025 Anxiety 05/26/2024 Pap smear for cervical cancer screening 08/10/20 Overview (08/10/2022): 06/2022 NIL/ HPV negative Plan: Pap/ HPV due 06/2027 Hx of colonic polyps 08/02/2015 Major depression, recurrent 01/01/2009 Fibromyalgia Ulcerative colitis Overview (01/07/2025): Colonoscopy 10/2017 moderate ulcerative colitis involving the rectosigmoid area (0-25 cm), repeat in 3 years No active Ulcerative Colitis since 2019 Prediabetes Atrophy of pancreas Overview (10/14/2023): Noted on CT scan Resolved Problems Problem Noted Date Diagnosed Date Resolved Date Immunosuppression 07/24/2017 07/06/2022 Depressive disorder, not elsewhere classified 01/01/2009 Encounters Date Type Department Care Team Description 02/06/2025 3:39 PM CDT - 02/06/2025 11:59 PM CDT Hospital Encounter [facility] [address] [facility] [place] [id number] Fever, unspecified fever cause; Fluid collection at surgical site, sequela 02/06/2025 Telephone [facility] [address] [place] [place] [phone] Juen Orosco PA 02/06/2025 Orders Only [facility] [address] [place] [place] [phone] June Orosco PA <No scans attached> 02/06/2025 Telephone [facility] [address] [place] [address] Yessica Chavarria DO Procedure (/) 02/06/2025 Telephone [facility] [address] [place] [address] Nacho Vincent MD 02/05/2025 3:45 PM CDT - 02/05/2025 11:59 PM CDT Hospital Encounter [facility] [address] [facility] [place] [address] Yessica Chavarrai DO Fever, unspecified fever cause 02/05/2025 3:30 PM CDT Office Visit [facility] [address] [place] [address] Yessica Chavarria DO Follow Up 02/05/2025 2:15 PM CDT Office Visit [facility] [address] [place] [address] Hayden Garcia PA Hospital F/U (fevers, feeling dizzy lightheaded. short of breath from walking. Pain on side, fevers, since the surgery on 01/14/25. Pain in her right lung, said that the lung was kind of collapsed as well 01/26/2025); Headache (off and on x1.5 months.) 02/05/2025 Travel 02/04/2025 Nurse Triage [facility] [address] [place] [address] Idania Bergeron MD Post-op (Fever) 02/02/2025 Patient Outreach [facility] [address] [place] [address] Chelsie Villa RN Primary RN Care Management; Hospital F/U (Hospital DC:02/01/25/LACE: 61/Sepsis ) 01/26/2025 3:46 PM CDT - 02/01/2025 1:15 PM CDT Hospital Encounter [facility] [address] [facility] [place] [address] Palomo Roque PA Hospitalist, [facility] [place], Joselo Nolasco, RIGOBERTO Garland, Holli Triplett, MD Salas, Regine Godinez, DO Alonzo Dela Cruz MD Lapham, Cayla Laws, RIGOBERTO Roy, Da Ulloa, DO Abdominal wall cellulitis (Primary Dx); Leukocytosis, unspecified type; Elevated C-reactive protein (CRP); Fever, unspecified fever cause; Acute nonintractable headache, unspecified headache type; Nausea; Hypoxia; Fibromyalgia; Anxiety; Pain Discharge Disposition: Home Self Care 01/26/2025 3:00 PM CDT Office Visit [address] [place] [address] Yessica Chavarria DO Follow Up (Increased pain, lumps in abdomen, chills) 01/26/2025 Travel 01/22/2025 11:30 AM CDT Office Visit [address] [place] [address] Yessica Chavarria DO Post-op (01/14 [place] Munira w/drain placement) 01/22/2025 Travel 01/19/[address] [phone] Idania Bergeron MD Back Pain 01/19/[address] [address] Yessica Chavarria DO Questions (FOLLOW UP ) 01/14/2025 1:45 PM CDT - 01/14/2025 4:05 PM CDT Surgery [facility] [address] [facility] [place] [address] Yessica Chavarria DO ROBOTIC ASSISTED LAPAROSCOPIC CHOLECYSTECTOMY USING INTRAOPERATIVE INDOCYANINE GREEN DYE (ICG) FLUORESCENCE IMAGING SYSTEM XI 01/14/2025 1:09 PM CDT Anesthesia Event [facility] [address] [facility] [place] [address] Edouard Naranjo, KIERSTEN Canas, Kj Velez CRNA 01/14/2025 10:40 AM CDT - 01/15/2025 3:16 PM CDT Hospital Encounter [facility] [address] [facility] [place] [address] Yessica Chavarria DO Beardsley, Joselo Nolasco, RACE STARTER Camacho, Sukumar Culver DO Cholecystitis (Primary Dx) Discharge Disposition: Home Self Care 01/14/2025 Travel 01/07/2025 7:55 AM CDT Office Visit [facility] [address] [place] [address] Idania Bergeron MD Pre-Op Exam (DOS: 01/14/2025) 01/07/2025 Travel 12/25/2024 2:30 PM CDT Office Visit [facility] [address] [place] [address] Yessica Chavarria DO Consult (Gallbladder ) 12/25/2024 Travel 12/22/2024 Nurse Triage [facility] [address] [place] [address] Idania Bergeron MD Abdominal Pain 12/17/2024 2:33 AM CDT - 12/17/2024 5:41 AM CDT Emergency [facility] [address] [facility] [place] [address] Wilfred Kern MD Biliary colic (Primary Dx); Abdominal pain, unspecified abdominal location; History of ulcerative colitis; Nausea Discharge Disposition: Home Self Care 12/17/2024 Travel from Last 3 Months Immunizations Immunization Administration Dates Next Due HepA-HepB (Twinrix) 05/05/2019,11/25/2018,2018 Influenza, IIV3 (Age >=3 years) 06/22/2011,07/18 Influenza, IIV4 10/09/2019 Influenza,CCIIV4 PRESERV FREE 10/01/2018 Pneumococcal Poly,23-Valent (Pneumovax) 01/23/20 19 Pneumococcal conj 13-Valent (Prevnar 13) 019 Td (Age >=7 Years) 11/06/2005 Td, Preservative Free (age >= 7 Years) 6 Tdap 03/31/2020 Tuberculin (PPD) 12/10/2015 Family History Medical History Relation Name Comments Heart Disease Brother pacemaker age 29 Heart Disease Father Cancer-breast No Family History Relation Name Status Comments Brother Father (Age 53) Mother (Age 72) ? sepsis Social History Tobacco Use Types Packs/Day Years Used Date Smoking Tobacco: Never Smokeless Tobacco: Never Tobacco Cessation:Counseling Given: No Alcohol Use Standard Drinks/Week Comments No 0 (1 standard drink = 0.6 oz pur e alcohol) PHQ-2 Answer Date Recorded PHQ-2 TOTAL SCORE 0 07/08/2024 Social Connections Answer Date Recorded Do you often feel lonely or isolated from those around you? 0 01/26/2025 Financial Resource Strain Answer Date R ecorded Difficulty of Paying Living Expenses 3 01/14/2025 Difficulty of Paying Living Expenses Not on file 01/14/2025 Food Insecurity Answer Date Recorded Do you worry your food will run out before you are able to buy more? 1 01/26/2025 Transportation Needs Answer Date Record ed Does lack of transportation keep you from medica l appointments? 1 01/26/2025 Does lack of transportation keep you from work, meetings or getting things that you need? 1 01/26/2025 Housing Stability Answer Date Recorded What is your housing situation today? 1 01/26/2025 Interpersonal Safety Answer Date Record ed Are you being hit, kicked, p ushed or yelled at (see row info)? No 01/26/2025 Interpersonal Safety Abuse 12 - 18 Not on file 01/26/2025 Interpersonal Safety Ambulatory Vulnerability No t on file 01/26/2025 Utilities Answer Date Recorded Do you have trouble paying f or utilities (for example, heat, electricity, water, phone)? 1 01/26/2025 Comments No Sex and Gender Information Value Date Recorded Sex Assigned at Female 01/26/2025 3:51 PM CDT Legal Sex Female 5:21 AM ROW BOSS Gender Identity Female 01/26/2025 3:51 PM CDT Sexual Orientation Straight 01/26/2025 3: 51 PM CDT Occupation Industry Job Start Date Job End Date Homemaker Not on file Not on file Not on file Obstetrics History Para Term AB IAB SAB Ectopic Multiple Livin g Live Births 11 8 3 3 Date Outcome GA Total Labor Labor/2nd/3rd Weight Sex Type Anes PTL Thelma A1 A5 Name Clin Para Para Para Para Para Para Para Para SAB SAB SAB Last Filed Vital Signs Vital Sign Reading Time Taken Comments Blood Pressure 134/68 02/05/2025 2:23 PM CDT Pulse 106 02/05/2025 2:23 PM CDT Temperature 37.7 C (99.9 F) 02/05/2025 2:48 PM CDT Respiratory Rate 16 02/01/2025 7:57 AM CDT Oxygen Saturation 95% 02/05/2025 2:23 PM CDT Inhaled Oxygen Concentration - - Weight 88.5 kg (195 lb 1.6 oz) 02/05/2025 2:23 P M CDT Height 162.6 cm (5' 4.02) 01/30/2025 5:29 AM CD T Body Mass Index 33.47 01/30/2025 5:29 AM CDT Plan of Treatment Upcoming Encounters Date Type Department Care Team (Late st Contact Info) Description 02/11/2025 3:00 PM CDT Appointment [facility] [address] [place] [address] 05/20/2025 11:30 AM CDT Office Visit [facility] [address] [place] [address] Nacho Vincent MD [address] [place] [address] Health Maintenance Due Date Last Done Comments HIV for age 15-65 1982 Zoster (shingles) series for age 50+ (1 of 2) 2017 Pneumococcal series for age 50+ (3 of 3 - PCV20 or PCV21) 01/23/2024 01/22/2019, 10/01/2018 COVID-19 vaccine series ( - 2023- season) 2024 Influenza Vaccine (Season Ended) 2025 10/09/2019, 10/01/2018, 06/22/2011, Additional history exists Mammogram for age 45-75 06/03/2025 06/03/20, 12/03/2021 (Completed outside of [facility]), 04/24/2018, Additional history exists Depression screening for age 12+ 07/08/2025 07/08/2024, 07/08/2024, 07/06/2024, Additional history exists Colonoscopy through age 75 12/16/202512/16, 11/21/2023, 02/12/2022 (Completed outside of [facility]), Additional history exists BMI (ht and wt on same day) for age 18+ 01/07/2026 01/07/2025, 05/26/2024, 11/13/2023, Additional history exists Lipids for age 45-75 07/05/2027 07/05/2022, 11/01/2017, 11/05/2014 Pap test for age 21-65 07/05/2027 , 07/05/2022, 11/18/2008 Tetanus booster 03/31/2030 03/31/2020, 10/19, 11/06/2005 Hepatitis C screening for ag e 18-79 Completed 10/06/2016 Hepatitis B series for 19+ Completed 05/05, 11/25/2018, 10/28/2018 Tdap Completed 03/31/2020 Procedures Procedure Name Priority Date/Time Associated Diagnosis Comments CBC WITH AUTO DIFFERENTIAL STAT 02/06/2025 3:45 PM CDT Fever, unspecified fever cause Fluid collection at surgical site, sequela HEPATIC FUNCTION PANEL STAT 02/06/2025 3:45 PM CDT Fever, unspecified fever cause Fluid collection at surgical site, sequela BASIC METABOLIC PANEL STAT 02/06/2025 3:45 PM CDT Fever, unspecified fever cause Fluid collection at surgical site, sequela CBC WITH AUTO DIFFERENTIAL STAT 02/06/2025 3:45 PM CDT Fever, unspecified fever cause Fluid collection at surgical site, sequela CT CHEST ABDOMEN PELVIS W STAT 02/05/2025 4:12 PM CDT Fever, unspecified fever cause WHITE BLOOD COUNT Early AM 02/01/2025 7:01 AM CDT C-REACTIVE PROTEIN Early AM 02/01/2025 7:01 AM CDT POTASSIUM Early AM 02/01/2025 7:01 AM CDT MAGNESIUM Early AM 02/01/2025 7:01 AM CDT HEPATIC FUNCTION PANEL WILLAM 01/31/2025 6:12 AM CDT C-REACTIVE PROTEIN WILLAM 01/31/2025 6:12 AM CDT POTASSIUM Early AM 01/31/2025 6:12 AM CDT SODIUM Early AM 01/31/2025 6:12 AM CDT MAGNESIUM Early AM 01/31/2025 6:12 AM CDT CREATININE Early AM 01/31/2025 6:12 AM CDT HEMOGLOBIN Early AM 01/31/2025 6:12 AM CDT WHITE BLOOD COUNT Early AM 01/31/2025 6:[address] CHEST ABDOMEN PELVIS W STAT 01/30/2025 8:38 PM CDT WHITE BLOOD COUNT Early AM 01/30/2025 5:57 AM CDT SODIUM Early AM 01/30/2025 5:56 AM CDT POTASSIUM Early AM 01/30/2025 5:56 AM CDT CREATININE Early AM 01/30/2025 5:56 AM CDT C-REACTIVE PROTEIN Early AM 01/30/2025 5:56 AM CDT HEPATIC FUNCTION PANEL Early AM 01/29/2025 5:49 AM CDT SODIUM Early AM 01/29/2025 5:49 AM CDT POTASSIUM Early AM 01/29/2025 5:49 AM CDT CREATININE Early AM 01/29/2025 5:49 AM CDT C-REACTIVE PROTEIN Early AM 01/29/2025 5:49 AM CDT WHITE BLOOD COUNT Early AM 01/29/2025 5:49 AM CDT SCAN-DIAGNOSTIC REPORT 01/29/2025 12:00 AM CDT SCAN-DIAGNOSTIC REPORT 01/29/2025 12:00 AM CDT C-REACTIVE PROTEIN Early AM 01/28/2025 5:54 AM CDT WHITE BLOOD COUNT Early AM 01/28/2025 5:54 AM CDT CREATININE Early AM 01/28/2025 5:54 AM CDT POTASSIUM Early AM 01/28/2025 5:54 AM CDT SODIUM Early AM 01/28/2025 5:[address] CHEST PE STUDY STAT 01/27/2025 7:49 PM CDT C-REACTIVE PROTEIN Early AM 01/27/2025 6:00 AM CDT WHITE BLOOD COUNT Early AM 01/27/2025 6:00 AM CDT CREATININE Early AM 01/27/2025 6:00 AM CDT POTASSIUM Early AM 01/27/2025 6:00 AM CDT SODIUM Early AM 01/27/2025 6:00 AM CDT MRSA/SA PCR STAT 01/26/2025 8:35 PM CDT AEROBIC BACTERIAL CULTURE, STAIN STAT 01/26/2025 6:[address] ABDOMEN PELVIS W STAT 01/26/2025 5:29 PM CDT URINALYSIS MICROSCOPIC STAT 01/26/2025 4:27 PM CDT UA W/ SEDIMENT EXAM REFLEXED PER CRITERIA STAT 01/26/2025 4:27 PM CDT CBC WITH AUTO DIFFERENTIAL STAT 01/26/2025 4:15 PM CDT LACTATE VENOUS Today 01/26/2025 4:15 PM CDT LIPASE STAT 01/26/2025 4:15 PM CDT HEPATIC FUNCTION PANEL STAT 01/26/2025 4:15 PM CDT C-REACTIVE PROTEIN STAT 01/26/2025 4:15 PM CDT BASIC METABOLIC PANEL STAT 01/26/2025 4:15 PM CDT CBC WITH AUTO DIFFERENTIAL STAT 01/26/2025 4:15 PM CDT COMP METABOLIC PANEL Early AM 01/15/2025 5:45 AM CDT CBC W PLT NO DIFF Early AM 01/15/2025 5:45 AM CDT PERIPHERAL BLOCK Routine 01/14/2025 5:20 PM CDT PATH TISSUE EXAM Today 01/14/2025 3:35 PM CDT BEDSIDE US STUDY ARCHIVE Routine 01/14/2025 1:30 PM CDT ENDOTRACHEAL TUBE Routine 01/14/2025 1:28 PM CDT ROBOTIC ASSISTED LAPAROSCOPIC CHOLECYSTECTOMY USING INTRAOPERATIVE INDOCYANINE GREEN DYE (ICG) FLUORESCENCE IMAGING SYSTEM XI Elective 01/14/2025 12:59 PM CDT Biliary colic Abdominal pain, unspecified abdominal location Special Needs No Path BEDSIDE US STUDY ARCHIVE Routine 01/14/2025 11:35 AM CDT CBC WITH AUTO DIFFERENTIAL Routine 12/25/2024 4:30 PM CDT Biliary colic Abdominal pain, unspecified abdominal location HEPATIC FUNCTION PANEL Routine 12/25/2024 4:30 PM CDT Biliary colic Abdominal pain, unspecified abdominal location TROPONIN T (HS) ONE TIME Timed 12/17/2024 4:58 AM CDT US ABDOMEN LIMITED GALLBLADDER STAT 12/17/2024 4:[address] ABDOMEN PELVIS W STAT 12/17/2024 3:44 AM CDT CBC WITH AUTO DIFFERENTIAL STAT 12/17/2024 2:59 AM CDT TROPONIN T (HS) ACUTE W/2HR REFLEX STAT 12/17/2024 2:59 AM CDT LIPASE STAT 12/17/2024 2:59 AM CDT COMP METABOLIC PANEL STAT 12/17/2024 2:59 AM CDT CBC WITH AUTO DIFFERENTIAL STAT 12/17/2024 2:59 AM CDT EKG 12 LEAD STAT 12/17/2024 2:40 AM CDT SCAN-COLONOSCOPY 12/16/2024 2:00 PM CDT XR MAMMO GINA BILAT SCREEN Routine 06/03/2024 10:49 AM CDT Encounter for screening mammogram for malignant neoplasm of breast LIPID PANEL W REFLEX MEASURED LDL Routine 07/05/2022 1:54 PM CDT Routine general medical examination at a health care facility HPV HIGH RISK Routine 07/05/2022 12:04 PM CDT Screening for cervical cancer ANTI HCV Routine 10/06/2016 2:09 PM ROW BOSS Ulcerative rectosigmoiditis without complication (HC) from Last 3 Months or Most Recently Relevant to Health Maintenance Results * (ABNORMAL) CBC WITH AUTO DIFFERENTIAL (02/06/2025 3:45 PM CDT) Only the most recent of3 resultswithin the time period is included. WHITE BLOOD COUNT 11.3(H) 4.5 - 11.0 thou/cu mm 02/06/2025 3:49 PM T [facility] RED BLOOD COUNT 4.25 4.00 - 5.20 mil/cu mm 02/06/2025 3:49 PM T [facility] HEMOGLOBIN 12.3 12.0 - 16.0 g/dL 02/06/2025 3:49 PM [facility] HEMATOCRIT 38.4 33.0 - 51.0 % 02/06/2025 3:49 PM [facility] MCV 90 80 - 100 fL 02/06/2025 3:49 PM [facility] MCH 28.9 26.0 - 34.0 pg 02/06/2025 3:49 PM [facility] MCHC 32.0 32.0 - 36.0 g/dL 02/06/2025 3:49 PM [facility] RDW 14.7 11.5 - 15.5 % 02/06/2025 3:49 PM [facility] PLATELET COUNT 737(H) 140 - 440 thou/cu mm 02/06/2025 3:49 PM CDT [facility] MPV 8.8 6.5 - 11.0 fL 02/06/2025 3:49 PM CDT [facility] % NEUT 67.3 % 02/06/2025 3:49 PM T [facility] % LYMPH 19.9 % 02/06/2025 3:49 PM [facility] % MONO 7.6 % 02/06/2025 3:49 PM [facility] % EOS 4.9 % 02/06/2025 3:49 PM [facility] % BASO 0.3 % 02/06/2025 3:49 PM T [facility] ABSOLUTE NEUTROPHILS 7.6(H) 1.7 - 7.0 thou/cu mm 02/06/2025 3:49 PM T [facility] ABSOLUTE LYMPHOCYTES 2.3 0.9 - 2.9 thou/cu mm 02/06/2025 3:49 PM [facility] ABSOLUTE MONOCYTES 0.9(H) <0.9 thou/cu mm 02/06/2025 3:49 PM [facility] ABSOLUTE EOSINOPHILS 0.6(H) <0.5 thou/cu mm 02/06/2025 3:49 PM [facility] ABSOLUTE BASOPHILS 0.0 <0.3 thou/cu mm 02/06/2025 3:49 PM [facility] Blood BLOOD SPECIMEN / Unknown Venipuncture / Unknown 02/06/2025 3:45 PM CDT 02/06/2025 3:45 PM CDT [facility] - 02/06/2025 3:49 PM T hospital lab 3:30-3:45 pm us June ANTHONY HEMATOLOGY Fin al Result [facility] [address] [place] [address] [id number] * (ABNORMAL) HEPATIC FUNCTION PANEL (02/06/2025 3:45 PM CDT) Only the most recent of5 resultswithin the time period is included. ALBUMIN 4.0 4.0 - 4.9 g/dL 02/06/2025 4:04 PM T [facility] PROTEIN,TOTAL 7.5 6.0 - 8.0 g/dL 02/06/2025 4:04 PM [facility] BILIRUBIN,TOTAL 0.2 0.0 - 1.2 mg/dL 02/06/2025 4:04 PM T [facility] BILIRUBIN,DIRECT 0.1 0.0 - 0.2 mg/dL 02/06/2025 4:04 PM [facility] BILIRUBIN,INDIRE CT 0.1(L) 0.2 - 0.8 mg/dL 02/06/2025 4:04 PM T [facility] ALK PHOSPHATASE 82 35 - 104 IU/L 02/06/2025 4:04 PM [facility] ALT (SGPT) 17 10 - 35 IU/L 02/06/2025 4:04 PM [facility] AST (SGOT) 18 10 - 35 IU/L 02/06/2025 4:04 PM [facility] Blood BLOOD SPECIMEN / Unknown Venipuncture / Unknown 02/06/2025 3:45 PM CDT 02/06/2025 3:45 PM CDT June ANTHONY CHEMISTRY Fin al Result Performing Organization Address City/[facility] Co de Phone Number [facility] [address] [place] [address] * (ABNORMAL) BASIC METABOLIC PANEL (02/06/2025 3:45 PM CDT) Only the most recent of2 resultswithin the time period is included. Pathologist [facility] SODIUM 142 136 - 145 mmol/L 02/06/2025 4:04 PM T [facility] POTASSIUM 3.5 3.5 - 5.1 mmol/L 02/06/2025 4:04 PM [facility] CHLORIDE 101 98 - 107 mmol/L 02/06/2025 4:04 PM [facility] CO2,TOTAL 29 22 - 29 mmol/L 02/06/2025 4:04 PM [facility] ANION GAP 12 5 - 18 02/06/2025 4:04 PM [facility] GLUCOSE 130(H) 70 - 99 mg/dL 02/06/2025 4:04 PM [facility] CALCIUM 9.5 8.8 - 10.4 mg/dL 02/06/2025 4:04 PM [facility] Comment: Reference ranges for this test were updated on 07/22/2024 to reflect our healthy population more accurately. Reference range changes are not retroactively applied to results, but previous results using the same methodology can be interpreted in the context of the new reference range. BUN 14 6 - 20 mg/dL 02/06/2025 4:04 PM [facility] CREATININE 0.63 0.50 - 0.90 mg/dL 02/06/2025 4:04 PM [facility] BUN/CREAT RATIO 22(H) 10 - 20 4:04 PM [facility] eGFR >90 >90 mL/min/1. 73m2 02/06/2025 4:04 PM [facility] Comment:As of 2021, eG FR is calculated by the CKD-EPI creatinine equation without race adjustment. eGFR can be influenced by muscle mass, exercise, and diet. The reported eGFR is an estimation only and is only applicable if the renal function is stable. Blood BLOOD SPECIMEN / Unknown Venipuncture / Unknown 02/06/2025 3:45 PM CDT 02/06/2025 3:45 PM CDT us June ANTHONY CHEMISTRY Fin al Result [facility] [address] [place] [address] * CT CHEST ABDOMEN PELVIS W (02/05/2025 4:12 PM CDT) Only the most recent of2 resultswithin the time period is included. Anatomical Region Laterality Modality Abdomen, Pelvis, AORTA, LIVER, SPLEEN, CHEST Computed Tomography 02/05/2025 5:10 PM CDT Impressions 02/05/2025 5:10 PM CDT 1. Interval increase in organization of the postoperative fluid collection within the gallbladder fossa. There is increased rim enhancement and thickening of the surrounding wall. This is concerning for a bile leak. Superinfection of the collection not excluded. 2. Small right pleural effusion with adjacent compressive atelectasis. Please note that all CT scans at this facility use dose modulation, iterative reconstruction, and/or weight-based dosing when appropriate to reduce radiation dose to as low as reasonably achievable. Dictated by Fawad Huizar MD @ 02/05/2025 5:10:57 PM (Electronically Signed) Narrative 02/05/2025 5:10 PM CDT For Patients: As a result of the Cures Act, medical imaging exams and procedure reports are released immediately into your electronic medical record. You may view this report before your referring provider. If you have questions, please contact your health care provider. INDICATION: Fever, unspecified fever causeSepsis post op fevers TECHNIQUE: CT chest, abdomen and pelvis acquired with 100 milliliters of Omnipaque 300 IV contrast. COMPARISON: January 30, 2025 FINDINGS: CHEST: Cardiovascular structures: Heart size is normal. Thoracic aorta and main pulmonary artery are normal in caliber. Mediastinum and héctor: No mass or adenopathy. Lungs and pleura: Small right-sided pleural effusion. Adjacent compressive atelectasis in the right lower lobe. Minimal atelectasis in the left lower lobe. Chest wall and axilla: No mass or adenopathy. Bones: No suspicious bone lesions. Unremarkable for age. ABDOMEN AND PELVIS: Liver: Unremarkable. Gallbladder and bile ducts: Gallbladder is absent. Postsurgical collection identified in the gallbladder fossa measuring proximally 6.2 x 4.7 centimeters. This is stable when compared to the prior exam when measured in a similar fashion. Decreased foci of gas within the collection. Possible mild increased thickness of the surrounding wall and subtle enhancement of the wall compared to the prior. Similar adjacent inflammatory changes in the mesenteric fat. No intra or extrahepatic biliary ductal dilatation. Pancreas: Unremarkable. Spleen: Unremarkable. Adrenal glands: Unremarkable. Kidneys: Unremarkable. GI tract: Unremarkable. Vascular structures: Unremarkable. Lymph nodes: Unremarkable. Miscellaneous: Subcutaneous fat stranding at the port insertion sites, an expected postoperative finding. No free air or significant free fluid. Pelvic Organs: Unremarkable. Bones: No suspicious bone lesions. Unremarkable for age. Procedure Note Fawad Huizar MD - 02/05/2025 For Patients: As a result of the Cures Act, medical imagingexams and procedure reports are released immediately into your electronicmedical record. You may view this report before your referring provider.If you have questions, please contact your health care provider. INDICATION: Fever, unspecified fever causeSepsis post op fevers TECHNIQUE: CT chest, abdomen and pelvis acquired with 100 milliliters of [id number] IV contrast. COMPARISON: January 30, 2025 FINDINGS: CHEST: Cardiovascular structures: Heart size is normal. Thoracic aorta and mainpulmonary artery are normal in caliber. Mediastinum and héctor: No mass or adenopathy. Lungs and pleura: Small right-sided pleural effusion. Adjacent compressiveatelectasis in the right lower lobe. Minimal atelectasis in the left lowerlobe. Chest wall and axilla: No mass or adenopathy. Bones: No suspicious bone lesions. Unremarkable for age. ABDOMEN AND PELVIS: Liver: Unremarkable. Gallbladder and bile ducts: Gallbladder is absent. Postsurgical collectionidentified in the gallbladder fossa measuring proximally 6.2 x 4.7centimeters. This is stable when compared to the prior exam when measuredin a similar fashion. Decreased foci of gas within the collection.Possible mild increased thickness of the surrounding wall and subtleenhancement of the wall compared to the prior. Similar adjacentinflammatory changes in the mesenteric fat. No intra or extrahepaticbiliary ductal dilatation. Pancreas: Unremarkable. Spleen: Unremarkable. Adrenal glands: Unremarkable. Kidneys: Unremarkable. GI tract: Unremarkable. Vascular structures: Unremarkable. Lymph nodes: Unremarkable. Miscellaneous: Subcutaneous fat stranding at the port insertion sites, anexpected postoperative finding. No free air or significant free fluid. Pelvic Organs: Unremarkable. Bones: No suspicious bone lesions. Unremarkable for age. IMPRESSION: 1. Interval increase in organization of the postoperative fluid collectionwithin the gallbladder fossa. There is increased rim enhancement andthickening of the surrounding wall. This is concerning for a bile leak.Superinfection of the collection not excluded. 2. Small right pleural effusion with adjacent compressive atelectasis. Please note that all CT scans at this facility use dose modulation,iterative reconstruction, and/or weight-based dosing when appropriate toreduce radiation dose to as low as reasonably achievable. Dictated by Fawad Huizar MD @ 02/05/2025 5:10:57 PM (Electronically Signed) Yessica Chavarria DO CT Final Res ult * WHITE BLOOD COUNT (02/01/2025 7:01 AM CDT) Only the most recent of6 resultswithin the time period is included. Pathologist [facility] WHITE BLOOD COUNT 9.8 4.5 - 11.0 thou/cu mm 02/01/2025 7:35 AM CDT [facility] Blood BLOOD SPECIMEN / Unknown Butterfly / Unknown 02/01/2025 7:01 AM CDT 02/01/2025 7:27 AM CDT Da Roy DO HEMATOLOGY Final Res ult Performing Organization Address [facility]/ZIP Co de Phone Number [facility] [address] [place] [address] * POTASSIUM (02/01/2025 7:01 AM CDT) Only the most recent of6 resultswithin the time period is included. [facility] POTASSIUM 3.6 3.5 - 5.1 mmol/L 02/01/2025 7:49 AM CDT [facility] Blood BLOOD SPECIMEN / Unknown Butterfly / Unknown 02/01/2025 7:01 AM CDT 02/01/2025 7:28 AM CDT Da Roy DO CHEMISTRY Final Res ult Performing Organization Address City/[facility]/ZIP Co de Phone Number [facility] [address] [place] [address] * (ABNORMAL) C-REACTIVE PROTEIN (02/01/2025 7:01 AM CDT) Only the most recent of7 resultswithin the time period is included. C-REACTIVE PROTEIN 18.1(H) <0.5 mg/dL 02/01/2025 7:49 AM CDT [facility] Blood BLOOD SPECIMEN / Unknown Butterfly / Unknown 02/01/2025 7:01 AM CDT 02/01/2025 7:28 AM CDT [facility] Final Res ult Performing Organization Address City/[facility]/ZIP Co de Phone Number [facility] [address] [place] [address] * MAGNESIUM (02/01/2025 7:01 AM CDT) Only the most recent of2 resultswithin the time period is included. MAGNESIUM 2.3 1.6 - 2.6 mg/dL 02/01/2025 7:49 AM CDT [facility] Blood BLOOD SPECIMEN / Unknown Butterfly / Unknown 02/01/2025 7:01 AM CDT 02/01/2025 7:28 AM CDT [facility] DO CHEMISTRY Final Res ult Performing Organization Address City/[facility]/ZIP Co de Phone Number [facility] [address] [place] [address] * HEMOGLOBIN (01/31/2025 6:12 AM CDT) HEMOGLOBIN 12.3 12.0 - 16.0 g/dL 01/31/2025 7:24 AM CDT [facility] MCV 91 80 - 100 fL 01/31/2025 7:24 AM CDT [facility] Blood BLOOD SPECIMEN / Unknown Butterfly / Unknown 01/31/2025 6:12 AM CDT 01/31/2025 6:53 AM CDT Cayla Hager RACE STARTER HEMATOLOGY Final Result Performing Organization Address City/[facility]/ZIP Co de Phone Number [facility] [address] [place] [address] * SODIUM (01/31/2025 6:12 AM CDT) Only the most recent of5 resultswithin the time period is included. SODIUM 139 136 - 145 mmol/L 01/31/2025 7:29 AM CDT [facility] Blood BLOOD SPECIMEN / Unknown Butterfly / Unknown 01/31/2025 6:12 AM CDT 01/31/2025 6:53 AM CDT Cayla Hager RACE STARTER CHEMISTRY Final Result Performing Organization Address [facility] de Phone Number [facility] [address] [place] [address] * CREATININE (01/31/2025 6:12 AM CDT) Only the most recent of5 resultswithin the time period is included. eGFR >90 >90 mL/min/1.7 3m2 01/31/2025 7:29 AM CDT [facility] Comment:As of 2021, eG FR is calculated by the CKD-EPI creatinine equation without race adjustment. eGFR can be influenced by muscle mass, exercise, and diet. The reported eGFR is an estimation only and is only applicable if the renal function is stable. CREATININE 0.55 0.50 - 0.90 mg/dL 01/31/2025 7:29 AM CDT [facility] Blood BLOOD SPECIMEN / Unknown Butterfly / Unknown 01/31/2025 6:12 AM CDT 01/31/2025 6:53 AM CDT Cayla Hager NP CHEMISTRY Final Result Performing Organization Address [facility] Co de Phone Number [facility] [address] [place] [address] * SCAN-DIAGNOSTIC REPORT (01/29/2025 12:00 AM CDT) Narrative 01/29/2025 12:00 AM CDT Ordered by an unspecified provider. us Other Clinical Staff OTHER Final Resul t * SCAN-DIAGNOSTIC REPORT (01/29/2025 12:00 AM CDT) Narrative 01/29/2025 12:00 AM CDT Ordered by an unspecified provider. us Other Clinical Staff OTHER Final Resul t * CT CHEST PE STUDY (01/27/2025 7:49 PM CDT) Anatomical Region Laterality Modality CHEST, THORAX, HEART Computed To mography 01/27/2025 8:32 PM CDT Impressions 01/27/2025 8:32 PM CDT 1. No definite acute findings. Specifically, no evidence of pulmonary embolism within the limits of the exam. 2. Small right pleural effusion. 3. Calcified versus arterially hyperenhancing lesions at the hepatic dome are indeterminate on this single-phase postcontrast exam, possibly calcified granulomas or flash filling hemangiomas. These lesions could be characterized in greater detail with nonemergent multiphase CT or MR, if clinically needed. 4. Scattered tiny pulmonary nodules that do not require follow-up unless the patient is considered high risk for the development of lung cancer. If patient is high risk, follow-up chest CT in 12 months could be considered to ensure stability. Please note that all CT scans at this facility use dose modulation, iterative reconstruction, and/or weight-based dosing when appropriate to reduce radiation dose to as low as reasonably achievable. Dictated by Mick Ochoa MD @ 01/27/2025 8:32:15 PM (Electronically Signed) Narrative 01/27/2025 8:32 PM CDT For Patients: As a result of the 21st Century Cures Act, medical imaging exams and procedure reports are released immediately into your electronic medical record. You may view this report before your referring provider. If you have questions, please contact your health care provider. INDICATION: Pulmonary embolism suspected, high probability, postsurgery, tachycardic and hypoxic. TECHNIQUE: CT chest PE was acquired with 100 cc Omnipaque 350 IV contrast. COMPARISON: None. FINDINGS: Heart and vasculature: Contrast opacification of the pulmonary arterial tree is borderline. No sign of pulmonary embolism. Heart size is normal. Thoracic aorta and pulmonary artery are normal in caliber. Lungs and pleura: Small right pleural effusion with associated compressive atelectasis. Mild bilateral subsegmental atelectasis. No definite acute pulmonary infiltrate. Scattered tiny pulmonary nodules, for example right upper lobe nodule measuring 3 mm (5/61). Lymph nodes/mediastinum: No mediastinal, hilar, or axillary adenopathy. Chest wall: No masses. Upper abdomen: No definite acute findings. Hyperdense small lesion cluster at the hepatic dome, possibly calcified (4/, 4/166). Bones: Unremarkable for age. Procedure Note Mick Ochoa MD - 01/27/2025 For Patients: As a result of the Cures Act, medical imagingexams and procedure reports are released immediately into your electronicmedical record. You may view this report before your referring provider.If you have questions, please contact your health care provider. INDICATION: Pulmonary embolism suspected, high probability, postsurgery, tachycardicand hypoxic. TECHNIQUE: CT chest PE was acquired with 100 cc Omnipaque 350 IV contrast. COMPARISON: None. FINDINGS: Heart and vasculature: Contrast opacification of the pulmonary arterialtree is borderline. No sign of pulmonary embolism. Heart size is normal.Thoracic aorta and pulmonary artery are normal in caliber. Lungs and pleura: Small right pleural effusion with associated compressiveatelectasis. Mild bilateral subsegmental atelectasis. No definite acutepulmonary infiltrate. Scattered tiny pulmonary nodules, for example rightupper lobe nodule measuring 3 mm (5/61). Lymph nodes/mediastinum: No mediastinal, hilar, or axillary adenopathy. Chest wall: No masses. Upper abdomen: No definite acute findings. Hyperdense small lesion clusterat the hepatic dome, possibly calcified (4/164, 4/166). Bones: Unremarkable for age. IMPRESSION: 1. No definite acute findings. Specifically, no evidence of pulmonaryembolism within the limits of the exam. 2. Small right pleural effusion. 3. Calcified versus arterially hyperenhancing lesions at the hepatic domeare indeterminate on this single-phase postcontrast exam, possiblycalcified granulomas or flash filling hemangiomas. These lesions could becharacterized in greater detail with nonemergent multiphase CT or MR, ifclinically needed. 4. Scattered tiny pulmonary nodules that do not require follow-up unlessthe patient is considered high risk for the development of lung cancer. Ifpatient is high risk, follow-up chest CT in 12 months could be consideredto ensure stability. Please note that all CT scans at this facility use dose modulation,iterative reconstruction, and/or weight-based dosing when appropriate toreduce radiation dose to as low as reasonably achievable. Dictated by Mick Ochoa MD @ 01/27/2025 8:32:15 PM (Electronically Signed) Joselo Hastings NP CT Fin al Result * MRSA/SA PCR (01/26/2025 8:35 PM CDT) MRSA DNA PCR Negative Negative 01/27/2025 2:55 PM CDT [facility] STAPHYLOCOCCUS AUREUS PCR Negative Negative 01/27/2025 2:55 PM CDT [facility] Other SPECIMEN FROM INTERNAL NOSE / Unknown Non-Blood / Unknown 01/26/2025 8:35 PM CDT 01/26/2025 9:15 PM CDT Narrative [facility] - 01/27/2025 2:55 PM CDT Test result does not preclude MRSA or SA nasal colonization. Joselo Hastings NP MICROBIOLOGY Fin al Result [facility] [address] [place] [address], * (ABNORMAL) AEROBIC BACTERIAL CULTURE, STAIN (01/26/2025 6:56 PM CDT) CULTURE RESULT(A) 01/29/2025 12:56 PM CDT [facility] CULTURE 4+ Staphylococcus aureus 01/29/2025 12:56 PM CDT [facility] GRAM STAIN No PMNs 01/29/2025 12:56 PM CDT [facility] GRAM STAIN No RBCs 01/29/2025 12:56 PM CDT [facility] GRAM STAIN No Epithelial cells 01/29/2025 12:56 PM CDT [facility] GRAM STAIN 4+ Gram Positive Cocci 01/29/2025 12:56 PM CDT [facility] Other SPECIMEN FROM SKIN / Unknown Non-Blood / Unknown 01/26/2025 6:56 PM CDT 01/26/2025 7:01 PM CDT Narrative Organism Antibiotic Method Susceptibility Staphylococcus aureus OXACILLIN <=0.25: S Comment:Oxacillin norman sceptible should not be interpreted as penicillin or amoxicillin susceptible. Staphylococcus aureus CLINDAMYCIN 0.25: S Staphylococcus aureus DOXYCYCLINE <=0.5: S Staphylococcus aureus CEFAZOLIN S Staphylococcus aureus TRIMETHOPRIM/SULF <=0.5/9.5: S Palomo ANTHONY MICROBIOLOGY Fin al Result [facility] [address] [place] [id number], [place] * CT ABDOMEN PELVIS W (01/26/2025 5:29 PM CDT) Only the most recent of2 resultswithin the time period is included. Anatomical Region Laterality Modality Abdomen, Pelvis, AORTA, LIVER, SPLEEN Computed Tomography 01/26/2025 6:38 PM CDT Impressions 01/26/2025 6:38 PM CDT 1. Cholecystectomy. There is a moderate amount of fluid and some gas within the gallbladder fossa which tracks along the inferior aspect of the right hepatic lobe and pericolic gutter. Surgical drain traverses the fluid collection within the gallbladder fossa. This could represent a seroma or possibly a biloma. Mild wall thickening of the adjacent ascending colon probably reactive 2. Subcutaneous edematous changes over the right lateral and central abdominal wall. Please note that all CT scans at this facility use dose modulation, iterative reconstruction, and/or weight-based dosing when appropriate to reduce radiation dose to as low as reasonably achievable. Dictated by Carrie Vu MD @ 01/26/2025 6:38:23 PM (Electronically Signed) Narrative 01/26/2025 6:38 PM CDT For Patients: As a result of the Cures Act, medical imaging exams and procedure reports are released immediately into your electronic medical record. You may view this report before your referring provider. If you have questions, please contact your health care provider. INDICATION: Abdominal pain . TECHNIQUE: CT abdomen and pelvis with 100 mL Omnipaque 300 intravenous contrast. COMPARISON: CT 12/17/2024 FINDINGS: Lower chest: Tiny right effusion bibasilar atelectasis Liver: Normal in size and attenuation. No suspicious masses. Gallbladder and bile ducts: Cholecystectomy. Right abdominal wall drain traversing the gallbladder fossa. Moderate amount of fluid with gas gallbladder fossa eyelids extends along the inferior right hepatic lobe and along the pericolic gutter. Ascending colon which could be reactive. Pancreas: Unremarkable. No mass or inflammation. Spleen: Normal in size. No masses. Thickening of the adjacent Adrenal glands: Normal in size. No nodules. Low-attenuation lesions in both kidneys Kidneys: Too small to characterize GI tract: Abundant stool in the colon. Appendix is normal. Minimal wall thickening of the ascending colon. Vasculature: Abdominal aorta is normal in caliber. Lymph nodes: No lymphadenopathy. Peritoneum/Abdominal Wall: Subcutaneous edematous changes of the right and central abdominal wall Pelvis: Unremarkable. No pelvic masses. Bones: No aggressive lesion Procedure Note Carrie Vu MD - 01/26/2025 For Patients: As a result of the Cures Act, medical imagingexams and procedure reports are released immediately into your electronicmedical record. You may view this report before your referring provider.If you have questions, please contact your health care provider. INDICATION: Abdominal pain . TECHNIQUE: CT abdomen and pelvis with 100 mL Omnipaque 300 intravenous contrast. COMPARISON: CT 12/17/2024 FINDINGS: Lower chest: Tiny right effusion bibasilar atelectasis Liver: Normal in size and attenuation. No suspicious masses. Gallbladder and bile ducts: Cholecystectomy. Right abdominal wall draintraversing the gallbladder fossa. Moderate amount of fluid with gasgallbladder fossa eyelids extends along the inferior right hepatic lobeand along the pericolic gutter. Ascending colon which could be reactive. Pancreas: Unremarkable. No mass or inflammation. Spleen: Normal in size. No masses. Thickening of the adjacent Adrenal glands: Normal in size. No nodules. Low-attenuation lesions in both kidneys Kidneys: Too small to characterize GI tract: Abundant stool in the colon. Appendix is normal. Minimal wallthickening of the ascending colon. Vasculature: Abdominal aorta is normal in caliber. Lymph nodes: No lymphadenopathy. Peritoneum/Abdominal Wall: Subcutaneous edematous changes of the right andcentral abdominal wall Pelvis: Unremarkable. No pelvic masses. Bones: No aggressive lesion IMPRESSION: 1. Cholecystectomy. There is a moderate amount of fluid and some gaswithin the gallbladder fossa which tracks along the inferior aspect of theright hepatic lobe and pericolic gutter. Surgical drain traverses thefluid collection within the gallbladder fossa. This could represent aseroma or possibly a biloma. Mild wall thickening of the adjacent ascending colon probably reactive 2. Subcutaneous edematous changes over the right lateral and centralabdominal wall. Please note that all CT scans at this facility use dose modulation,iterative reconstruction, and/or weight-based dosing when appropriate toreduce radiation dose to as low as reasonably achievable. Dictated by Carrie Vu MD @ 01/26/2025 6:38:23 PM (Electronically Signed) Palomo ANTHONY CT Fin al Result * (ABNORMAL) URINALYSIS MICROSCOPIC (01/26/2025 4:27 PM CDT) RBC 3-5(A) 0-2, None Seen /HPF 01/26/2025 5:10 PM CDT [facility] WBC 0-2 0-2, 3-5, None Seen /HPF 01/26/2025 5:10 PM CDT [facility] BACTERIA Few None Seen, Rare, Few Bacteria/H PF 01/26/2025 5:10 PM CDT [facility] EPITHELIAL CELLS Few None Seen, Few Epi/HPF 01/26/2025 5:10 PM CDT [facility] Urine URINE SPECIMEN / Unknown Non-Blood / Unknown 01/26/2025 4:27 PM CDT 01/26/2025 4:51 PM CDT Palomo ANTHONY URINE Fin al Result [facility] [address] [place] [address] * (ABNORMAL) UA W/ SEDIMENT EXAM REFLEXED PER CRITERIA (01/26/2025 4:27 PM CDT) COLOR Yellow Yellow Color 01/26/2025 5:06 PM [facility] CLARITY Clear Clear Clarity 01/26/2025 5:06 PM [facility] SPECIFIC GRAVITY,URINE <=1.005(A) 1.010, 1.015, 1.020, 1.025 01/26/2025 5:06 PM [facility] PH,URINE 6.0 6.0, 7.0, 8.0, 5.5, 6.5, 7.5, 8.5 01/26/2025 5:06 PM [facility] UROBILINOGEN, QUALITATIVE Normal Normal EU/dl 01/26/2025 5:06 PM [facility] PROTEIN, URINE Negative Negative mg/dL 01/26/2025 5:06 PM [facility] GLUCOSE, URINE Negative Negative mg/dL 01/26/2025 5:06 PM [facility] KETONES,URINE Negative Negative mg/dL 01/26/2025 5:06 PM [facility] BILIRUBIN,URI NE Negative Negative 01/26/2025 5:06 PM [facility] OCCULT BLOOD,URINE Moderate(A) Negative 01/26/2025 5:06 PM [facility] [facility] NITRITE Negative Negative 01/26/2025 5:06 PM [facility] LEUKOCYTE ESTERASE Trace(A) Negative 01/26/2025 5:06 PM [facility] Urine URINE SPECIMEN / Unknown Non-Blood / Unknown 01/26/2025 4:27 PM CDT 01/26/2025 4:51 PM CDT us Palomo Roque PA URINE Fin al Result Performing Organization Address City/[facility]/ZIP Co de Phone Number [facility] [address] [place] [address] * LACTATE VENOUS (01/26/2025 4:15 PM CDT) [facility] LACTATE,VENOUS 1.1 0.5 - 2.0 mmol/L 01/26/2025 4:43 PM CDT [facility] Blood BLOOD SPECIMEN / Unknown Venipuncture / Unknown 01/26/2025 4:15 PM CDT 01/26/2025 4:18 PM CDT Palomo ANTHONY CHEMISTRY Fin al Result [facility] [address] [place] [address] * LIPASE (01/26/2025 4:15 PM CDT) Only the most recent of2 resultswithin the time period is included. [facility] LIPASE 13.6 13.0 - 60.0 IU/L 01/26/2025 4:45 PM CDT [facility] Blood BLOOD SPECIMEN / Unknown Venipuncture / Unknown 01/26/2025 4:15 PM CDT 01/26/2025 4:18 PM CDT Palomo ANTHONY CHEMISTRY Fin al Result [facility] [address] [place] [address] * (ABNORMAL) CBC W PLT NO DIFF (01/15/2025 5:45 AM CDT) [facility] WHITE BLOOD COUNT 13.2(H) 4.5 - 11.0 thou/cu mm 01/15/2025 6:12 AM CDT [facility] RED BLOOD COUNT 4.62 4.00 - 5.20 mil/cu mm 01/15/2025 6:12 AM CDT [facility] HEMOGLOBIN 13.5 12.0 - 16.0 g/dL 01/15/2025 6:12 AM CDT [facility] HEMATOCRIT 42.5 33.0 - 51.0 % 01/15/2025 6:12 AM T [facility] MCV 92 80 - 100 fL 01/15/2025 6:12 AM [facility] MCH 29.2 26.0 - 34.0 pg 01/15/2025 6:12 AM T [facility] MCHC 31.8(L) 32.0 - 36.0 g/dL 01/15/2025 6:12 AM [facility] RDW 14.4 11.5 - 15.5 % 01/15/2025 6:12 AM [facility] PLATELET COUNT 320 140 - 440 thou/cu mm 01/15/2025 6:12 AM [facility] MPV 9.3 6.5 - 11.0 fL 01/15/2025 6:12 AM [facility] Blood BLOOD SPECIMEN / Unknown Venipuncture / Unknown 01/15/2025 5:45 AM CDT 01/15/2025 6:05 AM T [facility] - 01/15/2025 6:12 AM CDT POD #1 in AM us Yessica Chavarria DO HEMATOLOGY Final Res ult [facility] [address] [place] [address] * (ABNORMAL) Comprehensive Metabolic Panel (01/15/2025 5:45 AM CDT) Only the most recent of2 resultswithin the time period is included. SODIUM 139 136 - 145 mmol/L 01/15/2025 6:52 AM [facility] POTASSIUM 3.9 3.5 - 5.1 mmol/L 01/15/2025 6:52 AM [facility] CHLORIDE 100 98 - 107 mmol/L 01/15/2025 6:52 AM [facility] CO2,TOTAL 27 22 - 29 mmol/L 01/15/2025 6:52 AM [facility] ANION GAP 12 5 - 18 01/15/2025 6:52 AM [facility] GLUCOSE 150(H) 70 - 99 mg/dL 01/15/2025 6:52 AM [facility] CALCIUM 9.3 8.8 - 10.4 mg/dL 01/15/2025 6:52 AM [facility] Comment: Reference ranges for this test were updated on 07/22/2024 to reflect our healthy population more accurately. Reference range changes are not retroactively applied to results, but previous results using the same methodology can be interpreted in the context of the new reference range. BUN 11 6 - 20 mg/dL 01/15/2025 6:52 AM [facility] CREATININE 0.76 0.50 - 0.90 mg/dL 01/15/2025 6:52 AM [facility] BUN/CREAT RATIO 14 10 - 20 6:52 AM [facility] eGFR >90 >90 mL/min/1. 73m2 01/15/2025 6:52 AM [facility] Comment:As of 2021, eG FR is calculated by the CKD-EPI creatinine equation without race adjustment. eGFR can be influenced by muscle mass, exercise, and diet. The reported eGFR is an estimation only and is only applicable if the renal function is stable. ALBUMIN 4.4 4.0 - 4.9 g/dL 01/15/2025 6:52 AM [facility] PROTEIN,TOTAL 7.0 6.0 - 8.0 g/dL 01/15/2025 6:52 AM [facility] BILIRUBIN,TOTAL 0.5 0.0 - 1.2 mg/dL 01/15/2025 6:52 AM [facility] ALK PHOSPHATASE 75 35 - 104 IU/L 01/15/2025 6:52 AM [facility] ALT (SGPT) 108(H) 10 - 35 IU/L 01/15/2025 6:52 AM [facility] AST (SGOT) 165(H) 10 - 35 IU/L 01/15/2025 6:52 AM CDT [facility] Blood BLOOD SPECIMEN / Unknown Venipuncture / Unknown 01/15/2025 5:45 AM CDT 01/15/2025 6:05 AM CDT Yessica Chavarria DO CHEMISTRY Final Res ult [facility] [address] [place] [address] * HCHG ANES TAP BLOCK W IMG GUIDE (01/14/2025 5:20 PM CDT) Narrative Edouard Naranjo CRNA - 01/14/2025 5:20 PM CDT Edouard Naranjo CRNA 01/14/2025 5:21 PM Peripheral Block Patient location during procedure: post-op Start time: 01/14/2025 5:05 PM End time: 01/14/2025 5:15 PM Reason for block: at surgeon's request and post-op pain PreProcedure Checklist Completed: patient identified, site marked, risks and benefits discussed, surgical consent, timeout performed and hand hygiene performed. Peripheral Block Patient position: lateral Prep: chloraprep Patient monitoring: continuous pulse oximetry, ECG and blood pressure Supplemental O2: yes Neuro Status: mild sedation Block type: TAP, regional analgesia techniques Laterality: bilateral Injection technique: single injection Skin Infiltration: lidocaine 1% Injection assessment: incremental Paravertebral block type: erector spinae Needle Needle type: Stimuplex Needle Details: echogenic Needle gauge: 20 G Needle length: 4 in Left needle localization (ultrasound): live ultrasound guidance and permanent images obtained Right needle localization (ultrasound): live ultrasound guidance and permanent images obtained Left needle Localization (plane blocks): needle and expected nerve localization visualized and local anesthetic visualized in anatomic plane Right needle Localization (plane blocks): needle and expected nerve localization visualized and local anesthetic visualized in anatomic plane Catheter Catheter used:no Events: no complications. us Edouard Naranjo CRNA ANESTHESIA PX NOTE ORD ERABLES Final Result * PATH TISSUE EXAM (01/14/2025 3:35 PM CDT) Case Report Pathology Report Case: [id number] Authorizing Provider: Yessica Chavarria DO Collected: 01/14/2025 1535 Ordering Location: [facility] Received: 01/15/[address] [place] [address] Pathologist: Joe Ramírez IV, MD Specimen: Gallbladder, with contents 01/20/2025 1:32 PM CDT [facility] Final Diagnosis A) GALLBLADDER, CHOLECYSTECTOMY: 1. Chronic cholecystitis 2. Cholelithiasis 3. Negative for dysplasia and malignancy 01/20/2025 1:32 PM CDT [facility] at 1332 CDT Clinical Information Ms. Hernandez is a 59 y.o. who undergoes cholecystectomy. 01/20/2025 1:32 PM CDT [facility] Gross Description A) Received in formalin, labeled with the patient's name and gallbladder with contents, is a 10.8 x 3.8 x 3.5 cm intact gallbladder. There are multiple yellow gallstones identified. There is fine yellow stippling in the mucosa; no other lesions are identified. The average wall thickness is 0.4 cm. There is diffuse thickening of the gallbladder wall. No cystic duct lymph node is identified. Solid Waste Disposal Manager sections are submitted in one cassette. MICHELLE 01/17/2025 01/20/2025 1:32 PM CDT [facility] Microscopic Description The final diagnosis is based on microscopic examination of appropriate sections of all specimens. 01/20/2025 1:32 PM CDT [facility] Additional Information Interpreted at [facility] - [address], [place] [address] 01/20/2025 1:32 PM CDT [facility] Tissue SPECIMEN FROM GALLBLADDER / Unknown 01/14/2025 3:35 PM CDT 01/15/2025 2:53 PM CDT Yessica Chavarria DO PATHOLOGY/CYTOLOGY Final Result [facility] [address] [address], [place] * [facility]CH[facility] TUBE PR1 (01/14/2025 1:28 PM CDT) Narrative Edouard Naranjo CRNA - 01/14/2025 1:28 PM CDT Edouard Naranjo CRNA 01/14/2025 1:28 PM Procedure: ETT Patient location during procedure: OR ETT Properties Mask Ventilation: easy Final Technique: direct laryngoscopy Type: straight Location: oral Cuffed: yes Tube Size: 7.0 mmno Laryngoscope Blade: Mcnamara Blade Size: 2 Cormack-Lehane Grade View: 1 Insertion Attempts: 1 Placement Verification: auscultation and end tidal CO2 Assessment: pharynx clear, atraumatic and dentition unchanged Secured at: 21 Measured From: lips Difficulty: 0 (not difficult) Edouard Naranjo CRNA ANESTHESIA PX NOTE ORD ERABLES Final Result * (ABNORMAL) CBC AND DIFFERENTIAL (12/25/2024 4:30 PM CDT) Pathologist [facility] WHITE BLOOD CELL COUNT 9.6 3.8 - 10.8 Thousand/u L [facility] RED BLOOD CELL COUNT 4.53 3.80 - 5.10 Million/uL [facility] HEMOGLOBIN 13.3 11.7 - 15.5 g/dL [facility] HEMATOCRIT 40.4 35.0 - 45.0 % [facility] MCV 89.2 80.0 - 100.0 fL [facility] MCH 29.4 27.0 - 33.0 pg [facility] MCHC 32.9 32.0 - 36.0 g/dL [facility] Comment: For adults, a slight decrease in the calculated MCHC value (in the range of 30 to 32 g/dL) is most likely not clinically significant; however, it should be interpreted with caution in correlation with other red cell parameters and the patient's clinical condition. RDW 12.4 11.0 - 15.0 % [facility] PLATELET COUNT 522(H) 140 - 400 Thousand/u L [facility] MPV 9.8 7.5 - 12.5 fL [facility] ABSOLUTE NEUTROPHILS 6,461 1,500 - 7,800 cells/uL [facility] ABSOLUTE LYMPHOCYTES 1,978 850 - 3,900 cells/uL [facility] ABSOLUTE MONOCYTES 643 200 - 950 cells/uL [facility] ABSOLUTE EOSINOPHILS 432 15 - 500 cells/uL [facility] ABSOLUTE BASOPHILS 86 0 - 200 cells/uL [facility] NEUTROPHILS 67.3 % [facility] LYMPHOCYTES 20.6 % [facility] MONOCYTES 6.7 % [facility] EOSINOPHILS 4.5 % [facility] BASOPHILS 0.9 % [facility] Blood BLOOD SPECIMEN / Unknown 12/25/2024 4:30 PM CDT 12/25/2024 4:35 PM CDT Narrative [facility] - 12/26/2024 4:03 AM CDT FASTING:NO FASTING: NO Yessica Chavarria DO HEMATOLOGY Final Res ult [facility] [address] [id number], [facility] [address] * (ABNORMAL) TROPONIN T (HS) ONE TIME (12/17/2024 4:58 AM CDT) TROPONIN T HS 14(H) 6-10 ng/L ng/L 12/17/2024 5:23 AM CDT [facility] Blood BLOOD SPECIMEN / Unknown Butterfly / Unknown 12/17/2024 4:58 AM CDT 12/17/2024 5:01 AM CDT Wilfred Kern MD CHEMISTRY Final Result [facility] [address] [place] [address] * US ABDOMEN LIMITED GALLBLADDER (12/17/2024 4:43 AM CDT) Anatomical Region Laterality Modality Abdomen Ultrasound 12/17/2024 4:47 AM CDT Narrative 12/17/2024 4:47 AM CDT For Patients: As a result of the Cures Act, medical imaging exams and procedure reports are released immediately into your electronic medical record. You may view this report before your referring provider. If you have questions, please contact your health care provider. Indication: Right upper quadrant abdominal pain Technique: Sonography of the abdomen was performed limited to the structures discussed below Comparison: Portions of a CT from December 17, 2024 Findings: Gallbladder wall thickness is normal at 2 millimeters. No pericholecystic fluid. No reported sonographic Saleem`s sign. Sludge and multiple calculi are noted within the gallbladder. Minimally prominent extrahepatic biliary ductal system at 6 millimeters. Impression: 1. Cholelithiasis but no evidence of acute cholecystitis. No wall thickening, pericholecystic fluid or sonographic Saleem`s sign. 2. Minimally prominent extrahepatic biliary ductal system at 6 millimeters. Dictated by Anurag Davis MD @ 12/17/2024 4:47:08 AM (Electronically Signed) Procedure Note Anurag Davis MD - 12/17/2024 For Patients: As a result of the Cures Act, medical imagingexams and procedure reports are released immediately into your electronicmedical record. You may view this report before your referring provider.If you have questions, please contact your health care provider. Indication: Right upper quadrant abdominal pain Technique: Sonography of the abdomen was performed limited to the structuresdiscussed below Comparison: Portions of a CT from December 17, 2024 Findings: Gallbladder wall thickness is normal at 2 millimeters. No pericholecysticfluid. No reported sonographic Saleem`s sign. Sludge and multiple calculi are noted within the gallbladder. Minimally prominent extrahepatic biliary ductal system at 6 millimeters. Impression: 1. Cholelithiasis but no evidence of acute cholecystitis. No wallthickening, pericholecystic fluid or sonographic Saleem`s sign. 2. Minimally prominent extrahepatic biliary ductal system at 6millimeters. Dictated by Anurag Davis MD @ 12/17/2024 4:47:08 AM (Electronically Signed) us Wilfred Kern MD Final Result * (ABNORMAL) TROPONIN T (HS) ACUTE W/2HR REFLEX (12/17/2024 2:59 AM CDT) TROPONIN T HS 15(H) 6-10 ng/L ng/L 12/17/2024 3:25 AM CDT [facility] Blood BLOOD SPECIMEN / Unknown Butterfly / Unknown 12/17/2024 2:59 AM CDT 12/17/2024 3:03 AM CDT [facility] - 12/17/2024 3:25 AM CDT hs-cTnT (Elecsys Troponin T Gen 5) concentration (s) above the sex-specific 99th percentile (16 ng/L or greater for males or 11 ng/L or greater for females) are indicative of myocardial injury. If initial hs-cTnT <=100 ng/L at presentation, a 0h/2h ABSOLUTE (ng/L) delta change (rising or falling) of >=10 ng/L suggests a significant change, whereas a 0h/2h delta change <=3 ng/L suggests no significant change. If initial hs-cTnT >100 ng/L at presentation, a 0h/2h/ RELATIVE (percent, %) delta change of 20% is suggested to distinguish patients with acute vs. chronic myocardial injury. There are multiple etiologies that can cause hs-cTnT increases above the 99th percentile (myocardial injury) other than acute myocardial infarction. Clinical context and careful clinical evaluation are critical for diagnosis and risk-stratification. The diagnosis of acute myocardial infarction requires a rising and/or falling pattern in hs-cTnT concentrations with at least one value above the sex-specific 99th percentile PLUS at least one of the following clinical criteria: ischemic symptoms, new or presumed new significant ST-T wave changes or new LBBB, development of pathological Q waves, imaging evidence of new loss of viable myocardium or new regional wall motion abnormality, or identification of intracoronary atherothrombosis or an acute angiographic culprit on coronary angiography. In appropriate low-risk patients with a non-ischemic electrocardiogram without active chest pain with a symptom onset >3-hours without recurrence, a single initial hs-cTnT<6 ng/L identifies patient with a very low risk in emergency department patient population. us Wilfred Kern MD CHEMISTRY Final Result Performing Organization Address [facility] Co de Phone Number [facility] [address] [place] [address] * EKG 12 LEAD (12/17/2024 2:40 AM CDT) Interpretation Normal sinus rhythm Normal ECG No previous ECGs available BEYOND NOW Ventricular Rate 61 BPM BEYOND NOW Atrial Rate 61 BPM BEYOND NOW P-R Interval 174 ms BEYOND NOW QRS Duration 90 ms BEYOND NOW QT 412 ms BEYOND NOW QTc 414 ms BEYOND NOW P [place] 41 degrees BEYOND NOW R [place] 26 degrees BEYOND NOW T [place] 19 degrees BEYOND NOW 12/17/2024 2:40 AM CDT 12/17/2024 5:52 PM CDT us Wilfred Kern MD EKG ORD Final Result Performing Organization Address [facility] Co de Phone Number BEYOND NOW [place], [place] * SCAN-COLONOSCOPY (12/16/2024 2:00 PM CDT) Narrative Procedure Note Zainab Ramirez MD - 12/16/2024 1:01 PM CDT [facility] [address], [address], [place] [address] Patient Name: Emperatriz Hernandez Gender: Female Exam Date: 12/16/2024 Visit Number: [id number] Age: 59 Years Date of : 1965 Attending MD: Zainab Ramirez MD Medical Record#: [id number] Procedure: Colonoscopy Indications: Ulcerative colitis Follow up adenomatous polyp(s) Referring MD: Referral Self Primary MD: Idania Bergeron MD Medications: Admitting Medications: 0.9% Normal Saline at TKO Intra Procedure Medications: Patient received monitored anesthesia care. Complications: No immediate complications Procedure: An examination of the heart and lungs was performed and found to be withinacceptable limits. . The patient was therefore deemed a reasonablecandidate for endoscopy and sedation. The risks and benefits of the procedure were explained to thepatient.After obtaining informed consent, the patient received monitoredanesthesia care and I passed the scope without difficulty via the rectum to the ileum. The appendiceal orificeand ic valve were identified. The scope was retroflexed during theexamination The quality of the prep was fair (Miralax/Gatorade DoublePrep). This was a complete examination throughout the entire colon. Findings: Polyp location: cecum. Quantity: 2. Size: 4 mm, 2 mm. Polyp shape:sessile. Maneuver: polypectomy was performed with a cold snare and cold biopsyforceps. Removal: complete. Retrieval: complete. Bleeding: none. Polyp location: descending colon. Quantity: 1. Size: 5 mm. Polypshape: sessile. Maneuver: polypectomy was performed with a cold snare. Removal: complete. Retrieval: complete. Bleeding: none. The nurse inadvertently placed one of the cecal polyps into the randomcecum/ascending colon biopsies jar. Random biopsies taken around removedcolon polyps and placed in random biopsies jar from that segment. The visualized terminal ileum appeared normal. The visualized colonic mucosa appeared otherwise normal. Hemorrhoids. External hemorrhoids without bleeding. Impression: Colorectal polyps Personal history of colonic polyps Ulcerative colitis, unspecified, without complicationsEndoscopic MayoScore = 0; Normal or inactive disease Preliminary Plan: The patient and their physician will receive a copy of the pathologyreport as well as pathology-based recommendations for future screening orsurveillance. Comments: Double prep and low fiber for 1 week prior to futurecolonoscopies. Miralax one dose twice daily for 1 week prior to startingcolonoscopy prep. Pathology Results: A: CECUM AND ASCENDING INCLUDING POLYP, BIOPSY: 1. Normal colonic mucosa with a prominent lymphoid aggregate 2. Negative for microscopic, active, and chronic colitis 3. Negative for dysplasia B: COLON, TRANSVERSE, BIOPSY: 1. Normal colonic mucosa 2. Negative for microscopic, active, and chronic colitis 3. Negative for dysplasia C: COLON, DESCENDING, BIOPSY: 1. Normal colonic mucosa 2. Negative for microscopic, active, and chronic colitis 3. Negative for dysplasia D: COLON, SIGMOID AND RECTUM, BIOPSY: 1. Normal colonic mucosa 2. Negative for microscopic, active, and chronic colitis 3. Negative for dysplasia E: COLON, CECUM, POLYP: 1. Inflammatory polyp 2. Negative for dysplasia F: COLON, DESCENDING, POLYP: 1. Sessile serrated adenoma 2. Negative for cytologic dysplasia 3. Per the colonoscopy report: a. Polyp size: 5 mm b. Resection: Complete c. Retrieval: Complete MICROSCOPIC A: Performed B: Performed C: Performed D: Performed E: Performed F: Performed Electronically signed by: Duncan Lui MD Interpreted at [facility], [address] [place] [id number] Orders Instruction(s)/Education: Instruction/Education Timeframe Assessment Colon Cancer Prevention K63.5 Colon Cancer Prevention K63.5 Colon Polyps K63.5 Colon Polyps K63.5 Hemorrhoids K63.5 Hemorrhoids K63.5 Final Plan: Repeat colonoscopy in 1 year. We will attempt to contact you at appropriate intervals via U.S. mail. Wemay not be able to find you or contact you at that time, therefore youshould know that the responsibility for following our recommendation restswith you. If you don't hear from us at the time your procedure is due,please contact our office to schedule an appointment. If your contactinformation should change, please contact our office so that we can updateyour record. Additional Comments: Double prep and low fiber for 1 week prior to future colonoscopies.Miralax one dose twice daily for 1 week prior to starting colonoscopyprep. _Electronically signed by: Zainab Ramirez MD 12/16/2024 cc: Idania Bergeron MD us Zainab Ramirez MD OTHER Final Result * XR MAMMO GINA BILAT SCREEN (06/03/2024 10:49 AM CDT) Anatomical Region Laterality Modality BREASTS, Breast Left, Breast Right Bilateral Mammography Impressions 06/03/2024 11:27 AM CDT There is no radiographic evidence for malignancy. Recommend annual mammograms. MAMMOGRAM ASSESSMENT: ACR 1 Negative PATIENTS: You will also receive a letter with your examination results in an easy to read format. If you have questions about your results, please contact your referring provider. Narrative 06/03/2024 11:27 AM CDT For Patients: As a result of the Century Cures Act, medical imaging exams and procedure reports are released immediately into your electronic medical record. You may view this report before your referring provider. If you have questions, please contact your health care provider. XR MAMMO GINA BILAT SCREEN [[id number]] CLINICAL HISTORY: This is an asymptomatic 58 y.o. patient. INDICATION FOR EXAM: Mammogram Screening. TECHNIQUE: CC & MLO views were obtained. This study was evaluated with the assistance of Computer-Aided Detection. Breast Tomosynthesis was used in interpretation. COMPARISON FILM: Yes 01/03/17 [facility] FINDINGS: There are scattered areas of fibroglandular density. There are no dominant masses, suspicious micro calcifications or areas of architectural distortion. us Idania Bergeron MD MAMMO Final Res ult * (ABNORMAL) LIPID PANEL W REFLEX MEASURED LDL (07/05/2022 1:54 PM CDT) CHOLESTEROL,TOTAL 241(H) 100 - 199 mg/dL 07/05/2022 3:06 PM [facility] TRIGLYCERIDES 183(H) <150 mg/dL 07/05/2022 3:06 PM [facility] HDL CHOLESTEROL 73 >40 mg/dL 2 3:06 PM [facility] NON-HDL CHOLESTEROL 168(H) <145 mg/dl 07/05/2022 3:06 PM [facility] CHOL/HDL RATIO 3.30 <4.50 07/05/2022 3:06 PM [facility] LDL CHOLESTEROL 131(H) <=130 mg/dL 07/05/2022 3:06 PM [facility] VLDL CHOLESTEROL 37(H) <=30 mg/dL 07/05/2022 3:06 PM CDT [facility] PROVIDER ORDERED STATUS RANDOM 07/05/2022 3:06 PM CDT [facility] Blood BLOOD SPECIMEN / Unknown Venipuncture / Unknown 07/05/2022 1:54 PM CDT 07/05/2022 1:56 PM CDT Idania Bergeron MD CHEMISTRY Final Res ult [facility] [address] [place] [address] * HPV HIGH RISK (07/05/2022 12:04 PM CDT) TYPE 16 Negative Negative 07/10/2022 11:15 AM CDT [facility] TYPE 18 Negative Negative 07/10/2022 11:15 AM CDT [facility] OTHER HIGH RISK TYPES Negative Negative 07/10/2022 11:15 AM CDT [facility] Other (Cervical) Non-Blood / Unknown 07/05/2022 12:04 PM CDT 07/06/2022 5:06 PM CDT Narrative [facility] [facility] - 07/10/2022 11:15 AM CDT HPV types 16, 18, 31, 33, 35, 39, 45, 51, 52, 56, 58, 59, 66 and 68 DNA were undetectable or below the pre-set threshold. Methodology: Aris Erna 4800 HPV Test Idania Bergeron MD MICROBIOLOGY Final Res ult [facility] [address] [place] [address], * ANTI HCV (10/06/2016 2:09 PM ROW BOSS) HEPATITIS C ANTIBODY Non-Reacti ve Non-Reacti ve 10/06/2016 8:23 PM ROW BOSS [facility] Blood BLOOD SPECIMEN / Unknown Venipuncture / Unknown 10/06/2016 2:09 PM ROW BOSS 10/06/2016 2:09 PM ROW BOSS Narrative [facility] - 10/06/2016 8:23 PM ROW BOSS Antibodies to HCV not detected; does not exclude the possibility of exposure to HCV. Parminder Garcia MD SEND OUTS Final Res ult [facility] [address] [place] [address], from Last 3 Months or Most Recently Relevant to Health Maintenance Insurance [id number] [place] [id number] [facility] [address] [place] [id number] [facility] Advance Directives * Full Code (Latest Code Status on File) Date Activated Date Inactivated Comments 01/26/2025 7:37 PM 02/01/2025 3:25 PM Question Answer Comments Code Status Discussion: Reviewed Preferences * Full Code Date Activated Date Inactivated Comments 01/14/2025 10:43 AM 01/15/2025 5:21 PM Question Answer Comments Code Status Discussion: Reviewed Preferences Care Teams Rocket Test Fire Worker Relationship Specialty Start Date End Date Idania Bergeron MD [address] [facility] [place] [id number] PCP - General Internal Medicine 06/20/22 Zainab Ramirez MD [facility] [place] [id number] Gastroenterology 07/05/22
--- OUTSIDE RECORDS SUMMARY | 2025-02-09 12:48 | XMS_ITS | Encounter Summary ---
Author Organization [facility] Address [address] [place] [address] Care Team Providers Care High [employer] Assistant Principal Name Role Phone Clinician, Not Found Primary Care Provider Un available Encounter Details Date Type Department Care Team (Latest Contact Info) Description 06/25/2014 Correspondence TMD at [address] [phone] Angela Card, LADI, [place] [address] [place], [place] [phone] INVISIGUARD SPLINT ORDER Social History Tobacco Use Types Packs/Day Years [...] documented as of this encounter Care Teams High School Assistant Principal Relationship Specialty Start Date End Date Clinician, Not Found, [place] [address] PCP - General 06/27/23 documented as of this encounter
--- OUTSIDE RECORDS SUMMARY | 2025-02-09 12:48 | XMS_ITS | Encounter Summary ---
Author Organization [facility] Address [address] [place] [address] Care Team Providers Care Call Center Representative Name Role Phone Clinician, Not Found Primary Care Provider Un available Encounter Details Date Type Department Care Team (Late st Contact Info) Description 07/09/2014 Correspondence TMD at [address] [phone] Angela Card, LADI, [place] [address] [place], [place] [phone] PROOF OF DELIVERY Social History Tobacco Use Types Packs/Day Years [...] documented as of this encounter Care Teams Call Center Representative Relationship Specialty Start Date End Date Clinician, Not Found, [place] [address] PCP - General 06/27/23 documented as of this encounter
[2025-02-09] MEDS: 0.9 % SODIUM CHLORIDE 500 ML 500 ML IV (12:49)
[2025-02-09 13:06] LABS: Basophils Percent Auto 0.3 % (0.0-3.0); Eosinophils Percent Auto 3.9 % (0.0-7.0); Hematocrit 39.8 % (33.0-51.0); Hemoglobin* 12.7 gm/dL (12.0-16.0); Immature Granulocytes Pct Auto 0.3 %; Lymphocytes Percent Auto 15.4 % (20-44); Mean Corpuscular HGB Conc 32 gm/dL (32-36); Mean Corpuscular Hemoglobin 29 pg (26-34); Mean Corpuscular Volume 91 fL (80-100); Monocytes Percent Auto 5.6 % (0.0-11.0); Neutrophils Percent Auto 74.5 % (42.0-72.0); Platelet Count* 861 K/uL (140-440); RDW Coefficient of Variation % 14.3 % (11.5-15.5); Red Blood Count 4.38 m/uL (4.00-5.20); Slide Review Reflex No; White Blood Count* 12.69 K/uL (4.50-11.00)
[2025-02-09 13:19] LABS: Albumin* 4.3 g/dL (3.3-5.0); Chloride* 100 mmol/L (96-114); Potassium* 3.5 mmol/L (3.6-5.1); Sodium* 140 mmol/L (135-149)
[2025-02-09 13:21] LABS: Amylase* 45 U/L (18-89); Blood Urea Nitrogen* 19 mg/dL (7-30); Creatinine* 0.7 mg/dL (0.5-1.5); Est. Creatinine Clearance* 76.57; Estimated Glomerular Filt Rate 101 ml/min
[2025-02-09 13:22] LABS: Alanine Aminotransferase* 17 U/L (4-35); Alkaline Phosphatase* 80 U/L (40-150); Anion Gap 10 mEq/L (7-15); Aspartate Amino Transferase* 24 U/L (12-35); Bilirubin Direct* 0.4 mg/dL (0.0-0.5); Bilirubin Total* 0.5 mg/dL (0.1-1.5); Calcium* 9.6 mg/dL (8.4-10.6); Carbon Dioxide* 30 mmol/L (20-32); Glucose* 110 mg/dL (60-115); Total Protein* 8.2 g/dL (6.0-8.3)
[2025-02-09 13:25] LABS: C Reactive Protein* 7.2 mg/dL (0.5-1.0)
[2025-02-09 13:26] LABS: INR 1.06 (0.91-1.10); Partial Thromboplastin Time* 31 Seconds (23-33); Prothrombin Time 14.7 Seconds
[2025-02-09 13:39] LABS: Troponin I* < 0.01 ng/mL (0.01-0.04)
[2025-02-09] MEDS: ERTAPENEM 1 GM in 0.9 % SODIUM CHLORIDE Mini-bag 100 ML IVPB (13:51)
== END 2025-02-09 18:15 | disposition short-term general hospital (02) ==
PROVIDERS: Emergency Provider Family Medicine; PCP Internal Medicine
DX: R07.9 Chest pain, unspecified (principal); R10.9 Unspecified abdominal pain; Z86.711 Personal history of pulmonary embolism
CPT/HCPCS: 36415; 71275; 74177; 80048; 80076; 82150; 84484; 85025; 85610; 85730; 86140; 93005; 94761; 96361; 96374; 96375; 99285; J1335; J2060; J2270; J7030; Q9967

== ENCOUNTER 2025-02-09 18:11 | Outpatient (CLI) | payer BC, SELFPAY | END 2025-02-09 18:12 | disposition home or self-care (01) | PROVIDERS: PCP Internal Medicine; Visit Provider Family Medicine | DX: R07.89 Other chest pain (principal); R10.9 Unspecified abdominal pain | CPT/HCPCS: A0425; A0427 ==